=== PATIENT | male | born 1945 | race Two or more races ===

== ENCOUNTER 2019-07-29 18:18 | Inpatient (IN) | payer MEDICARE, SELFPAY ==
[~2019-07-29] VITALS: Ht 177.8 cm; Wt 84.4 kg
[2019-07-29] MEDS ORDERED: ETOMIDATE 2 MG/ML VIAL IV ONE ×2 (18:23→20:00)
[2019-07-29] MEDS ORDERED: IV NS 0.9% 1,000 ML IV ONE (18:23)
[2019-07-29] MEDS ORDERED: ROCURONIUM BROMIDE 50 MG/5 ML IV ONE ×2 (18:23→20:00)
[2019-07-29] MEDS ORDERED: ONDANSETRON HCL/PF 4 MG/2 ML VIAL IVP ONE (18:30)
[2019-07-29] MEDS ORDERED: KETOROLAC TROMETHAMINE INJ 30 MG/ML VIAL IV ONE (18:30)
[2019-07-29] MEDS ORDERED: KETOROLAC TROMETHAMINE 15 MG/ML VIAL ONE (18:46)
[2019-07-29] MEDS ORDERED: ONDANSETRON HCL/PF 4 MG/2 ML VIAL ONE (18:46)
[2019-07-29 18:48] LABS: BASOPHILS % (AUTO) 0.2 % (0.0-2.0); HEMATOCRIT 25 % (39-51); LYMPHOCYTES # (AUTO) 0.4 /CMM (0.8-4.8); LYMPHOCYTES % (AUTO) 3.3 % (20.0-44.0); MEAN CORPUSCULAR HGB CONC 31 g/dl (31.0-36.0); MEAN CORPUSCULAR VOLUME 70 fL (80-96); MONOCYTES # (AUTO) 1.1 /CMM (0.1-1.30); MONOCYTES % (AUTO) 9.7 % (2.0-12.0); NEUTROPHILS # (AUTO) 10.1 /CMM (1.8-8.9); NEUTROPHILS % (AUTO) 86.8 % (43.0-81.0); PLATELET COUNT (AUTO) 414 /CMM (150-450); RED BLOOD CELL COUNT(AUTO) 3.64 MIL/uL (4.5-6.0); WHITE BLOOD COUNT (AUTO) 11.6 K/uL (4.3-11.0)
[2019-07-29 18:59] LABS: CALCIUM, SERUM 8.5 mg/dL (8.5-10.1); CARBON DIOXIDE 20 mmol/L (21-32); CHLORIDE 108 mmol/L (98-107); CREATININE 1.6 mg/dL (0.6-1.3); GLUCOSE 169 mg/dL (74-106); POTASSIUM 4.1 mmol/L (3.5-5.1); SODIUM SERUM 140 mmol/L (136-145); UREA NITROGEN, BLOOD 43 mg/dL (7-18)
--- NOTE | 2019-07-29 19:02 | NUR ---
PATIENT INTUBATED BY DR. PENG. SIZE 7.5, 22CM ON THE LIP.
[2019-07-29 19:04] LABS: APPEARANCE,URINE Slightly Cloudy (CLEAR); BILIRUBIN,URINE MODERATE (NEGATIVE); BLOOD, URINE Moderate Ery/uL (NEGATIVE); KETONES,URINE 15 (NEGATIVE); LEUKOCYTE ESTERASE ,URINE Negative (NEGATIVE); NITRITE, URINE Negative (NEGATIVE); PH,URINE 5.5 (5.0-8.0); PROTEIN,URINE 100 mg/dl (NEGATIVE); UGLUCOSE Negative (NEGATIVE)
--- NOTE | 2019-07-29 19:10 | NUR ---
BIB [facility] 86 FROM AN ALLEY, DECREASED LOC, HOT TO TOUCH, TACHYPNEIC. PT NON VERBAL. WOUND ON DEJAH LEG LOWER LEG INFECTED & MAGGOTS CRAWLING. PT SEEN & EVAL'D BY DR. PENG. PLACED ON DATA CONTROL ASSISTANT. ST. PT INTUBATED & PLACED ON VENT. MEDICATED ORDERED PER ERMD. WILL CONT TO MONITOR.
--- NOTE | 2019-07-29 19:12 | NUR ---
RT rt called to er bed 5 for intubation. pt intubated with size 7.5 ett at 22cm at lip. vent settings are: AC 16 500 100% +5. no secretions were suctioned via ett. pt has diminished lung sounds. no complications during intubation procedure. abg in 1 hr. will continue to monitor
[2019-07-29] MEDS ORDERED: VANCOMYCIN 1 GM VIAL ONE (19:14)
[2019-07-29] MEDS ORDERED: CEFEPIME 1 GM VIAL ONE (19:14)
[2019-07-29 19:15] LABS: RBC,URINE 51-80 /HPF (0-2); WBC,URINE 0-2 /HPF (0-3)
[2019-07-29 19:16] LABS: BACTERIA,URINE Few /HPF (None Seen); MUCUS,URINE Few /LPF (None Seen); SQUAMOUS EPITHELIAL CELL,UR Rare /HPF (None Seen); URINE AMORPHOUS URATE Few /HPF (None Seen)
[2019-07-29 19:19] LABS: ALANINE AMINOTRANSFERASE 19 U/L (12-78); ALKALINE PHOSPHATASE 76 U/L (46-116); ASPARTATE AMINOTRANSFERASE 28 U/L (15-37); B-TYPE NATRIURETIC PEPTIDE 1833 PG/ML (0-125); BILIRUBIN,TOTAL 0.9 mg/dL (0.2-1.0); TOTAL PROTEIN, SERUM 7.1 g/dL (6.4-8.2)
[2019-07-29] MEDS ORDERED: MIDAZOLAM HCL 100 MG in IV NS 0.9% 80 ML IV PRN (19:30)
[2019-07-29] MEDS ORDERED: VANCOMYCIN 1 GM in IV D5W 250 ML IV ONE (19:30)
[2019-07-29] MEDS ORDERED: FENTANYL CITRATE IV 1,250 MCG in IV NS 0.9% 225 ML IV PRN (19:30)
[2019-07-29] MEDS ORDERED: CEFEPIME 1 GM in IV D5W 50 ML IV ONE (19:30)
--- NOTE | 2019-07-29 19:41 | NUR ---
BED ASSIGNMENT 263
[2019-07-29 20:00] LABS: BAND % (MANUAL) 8 % (0.0-5.0); LYMPHOCYTES % (MANUAL) 2 % (16-48); MONOCYTES % (MANUAL) 10 % (0-11.0); NEUTROPHILS % (MANUAL) 80 (42-76)
[2019-07-29] MEDS ORDERED: PROPOFOL 10MG/ML 50ML 50 ML IV PRN (20:00)
[2019-07-29] MEDS ORDERED: PROPOFOL 100 ML IV PRN (20:00)
[2019-07-29 20:02] LABS: CREATINE KINASE, TOTAL 369 U/L (39-308); FERRITIN 137 ng/mL (8-388)
[2019-07-29 20:11] LABS: C-REACTIVE PROTEIN 21.9 mg/dL (0.0-0.9)
--- NOTE | 2019-07-29 20:37 | NUR ---
RT pt transported to ct and back. no complications. pt placed back on vent with current settings upon return
[2019-07-29 20:39] LABS: D-DIMER 3.2 mg/L(FEU (0.17-0.50)
--- NOTE | 2019-07-29 20:48 | NUR ---
PT TO CT VIA JUNI
--- NOTE | 2019-07-29 20:53 | NUR ---
PT BACK FROM CT
[2019-07-29 20:54] LABS: BILIRUBIN,DIRECT 0.4 mg/dL (0.0-0.2)
[2019-07-29] MEDS ORDERED: PROPOFOL 0 ML ONE (20:59)
[2019-07-29] MEDS ORDERED: PROPOFOL 100 ML ONE (21:03)
[2019-07-29 21:16] LABS: ABG BASE EXCESS -7.3 mmol/L; ABG OXYGEN SATURATION 99.6 % (92.0-98.5); ABG PCO2 50.1 mmHg (35.0-45.0); ABG PO2 477.7 mmHg (75.0-100.0); AaDO2 185.2 mmHg; COHb 1.6 % (0.5-1.5); MetHb 0.4 % (0.0-1.5); O2Hb 97.6 % (94.0-97.0); SITE, ABG Left Radial; VENT MODE, BG AC 16 500 100% +5
--- NOTE | 2019-07-29 21:16 | NUR ---
PROPOFOL DRIP INITIATED, PT KEEGAN WELL. PT STABLE, RR EVEN & UNLABORED. NAD NOTED AT THIS TIME. WILL CONT TO MONITOR.
--- NOTE | 2019-07-29 21:38 | NUR ---
REPORT GIVEN TO MIRIAM DEL ROSARIO FOR ARIA.
[2019-07-29] MEDS ORDERED: IV NS 0.9% 1,000 ML IV PRN (21:43)
[2019-07-29] MEDS ORDERED: ACETAMINOPHEN 325 MG TABLET PO PRN (22:00)
[2019-07-29] MEDS ORDERED: MAGNESIUM HYDROXIDE 30 ML UDC PO PRN (22:00)
[2019-07-29] MEDS ORDERED: ACETAMINOPHEN 650 MG/SUPP.RECT RC PRN (22:00)
[2019-07-29] MEDS ORDERED: Z GUARD REMEDY 2 OZ OINT TP PRN (22:00)
[2019-07-29] MEDS ORDERED: MAG HYDROX/AL HYDROX/SIMETH 30 ML UDC PO PRN (22:00)
[2019-07-29] MEDS ORDERED: ONDANSETRON HCL/PF 4 MG/2 ML VIAL IVP PRN (22:00)
--- NOTE | 2019-07-29 22:05 | NUR ---
RECEIVED PATIENT FROM ER< ORALLY INTUBATED ON AC MODE,sedated on Propofol drip (received from ER @ 5 mck/kg/min)responds to pain,slightly moves /wiggles both lower extremities,moves both upper extremities,maintain on bilateral soft wrist restraints. Both lower extremities with diffuse maggot infested wound,edematous with thickened skin(greater /more on the left leg leg).CLEANSE both legs with NSS. Noted a lot of blood underneath the patient when turned,(not sure where the bleeding is from,when checked no bleeding noted coming from the rectum,will observe the source of bleeding next time it happens.
[2019-07-29 22:13] VITALS: BP 112/50
[2019-07-29 22:43] VITALS: BP 80/33
[2019-07-29 23:00] VITALS: BP 95/64
[2019-07-29 23:15] VITALS: BP 88/48
[2019-07-29] MEDS ORDERED: PIPERACILLIN /TAZOBACTAM 3.375 G VIAL IV ONE (23:22)
[2019-07-29] MEDS: ZOSYN IVPB 3.375 G in IV D5W 50ml IV SCH (23:23)
[2019-07-29 23:30] VITALS: BP 86/51
[2019-07-29 23:45] VITALS: BP 86/38
[2019-07-30] VITALS (88 sets, daily range): BP systolic 81–121; BP diastolic 41–72
--- NOTE | 2019-07-30 | NUR ---
Awakens on and off getting agitated,kicking legs,trying to get off restraints.Will titrate Propofol up as needed.Levophed order obtained from Dr. Dooley for BP support.
[2019-07-30] MEDS: PROPOFOL 100 ML IV PRN ×5 (00:22→19:59)
[2019-07-30] MEDS ORDERED: NOREPINEPHRINE 4 MG/4 ML AMPUL IV ONE (00:44)
[2019-07-30] MEDS ORDERED: NOREPINEPHRINE 8 MG in IV NS 0.9% 242 ML IV PRN ×3 (02:00)
--- NOTE | 2019-07-30 02:00 | NUR ---
Still occasionally coughs and gags, Propofol maintained @ 40 mcg/kg/min.
--- NOTE | 2019-07-30 04:00 | NUR ---
No change ,stable, On Levophed @ 0.1 mcg/kg/min for BP support.Still on Propopfol drip.No further bleeding noted all night.
[2019-07-30 04:11] LABS: BASOPHILS % (AUTO) 0.1 % (0.0-2.0); HEMATOCRIT 22 % (39-51); LYMPHOCYTES % (AUTO) 6.4 % (20.0-44.0); MEAN CORPUSCULAR HGB CONC 31 g/dl (31.0-36.0); MEAN CORPUSCULAR VOLUME 71 fL (80-96); MONOCYTES # (AUTO) 2.4 /CMM (0.1-1.30); MONOCYTES % (AUTO) 15.5 % (2.0-12.0); NEUTROPHILS # (AUTO) 11.8 /CMM (1.8-8.9); PLATELET COUNT (AUTO) 344 /CMM (150-450); RED BLOOD CELL COUNT(AUTO) 3.07 MIL/uL (4.5-6.0); WHITE BLOOD COUNT (AUTO) 15.2 K/uL (4.3-11.0)
[2019-07-30 04:35] LABS: ALBUMIN 1.6 g/dL (3.4-5.0); BILIRUBIN,TOTAL 0.5 mg/dL (0.2-1.0); CALCIUM, SERUM 7.4 mg/dL (8.5-10.1); CREATININE 1.7 mg/dL (0.6-1.3); MAGNESIUM 2.5 mg/dL (1.8-2.4); POTASSIUM 3.9 mmol/L (3.5-5.1)
[2019-07-30 04:40] LABS: C-REACTIVE PROTEIN 30.7 mg/dL (0.0-0.9)
[2019-07-30] MEDS ORDERED: PIPERACILLIN /TAZOBACTAM 3.375 G VIAL IV ONE (05:24)
[2019-07-30 05:29] LABS: HEMOGLOBIN 6.8 g/dL (13.5-17.5)
[2019-07-30] MEDS: ZOSYN IVPB 3.375 G in IV D5W 50ml IV SCH (05:38)
[2019-07-30 05:44] LABS: LYMPHOCYTES % (MANUAL) 10 % (16-48); NEUTROPHILS % (MANUAL) 83 (42-76)
[2019-07-30 05:45] LABS: MONOCYTES % (MANUAL) 7 % (0-11.0)
[2019-07-30] MEDS ORDERED: FEE PK DOSING 1 MIN EA MC ONE (07:41)
[2019-07-30] MEDS ORDERED: IV NS 0.9% 1,000 ML IV PRN (08:56)
[2019-07-30 08:58] LABS: ABG BASE EXCESS -5.1 mmol/L; ABG PCO2 28.3 mmHg (35.0-45.0); ABG PH 7.434 (7.350-7.450); ABG PO2 319.6 mmHg (75.0-100.0); AaDO2 77.1 mmHg; COHb 1.1 % (0.5-1.5); MetHb 0.3 % (0.0-1.5); O2Hb 98.6 % (94.0-97.0); PEEP,BG 5 cm H2O; SITE, ABG Right Radial; VENT MODE, BG AC 60%; VT, ABG 500 mL
[2019-07-30] MEDS: VANCOMYCIN 0.75 GM in IV D5W 250 ML IV SCH ×2 (09:19→20:18)
[2019-07-30] MEDS: HYDROCORTISONE SOD SUCCINATE 100 MG/2 ML VIAL IV SCH ×3 (09:19→18:47)
[2019-07-30 09:35] LABS: TOTAL IRON BINDING CAPACITY 158 ug/dl (250-450)
[2019-07-30 10:16] LABS: IRON, SERUM 3 ug/dl (50-175)
[2019-07-30] MEDS: PIPERACILLIN /TAZOBACTAM 3.375 G in IV D5W 100 ML IV SCH ×2 (10:56→18:47)
[2019-07-30 11:32] LABS: APPEARANCE,URINE CLOUDY (CLEAR); BILIRUBIN,URINE NEGATIVE (NEGATIVE); BLOOD, URINE LARGE Ery/uL (NEGATIVE); COLOR,URINE YELLOW (YELLOW); KETONES,URINE NEGATIVE (NEGATIVE); LEUKOCYTE ESTERASE ,URINE NEGATIVE (NEGATIVE); NITRITE, URINE NEGATIVE (NEGATIVE); PH,URINE 5.5 (5.0-8.0); PROTEIN,URINE TRACE mg/dl (NEGATIVE); UGLUCOSE NEGATIVE (NEGATIVE); UROBILINOGEN,URINE 0.2 EU/dL (0.2)
[2019-07-30 11:53] LABS: CREATININE, URINE 105.4 MG/DL (30.0-125.0); URINE TOTAL PROTEIN 108.4 mg/dL (0-11.9)
--- NOTE | 2019-07-30 12:16 | NUR ---
Early Childhood Services Coordinator consult was requested during the case management meeting due to the pts homelessness and lack of identification. Pt is a 71 year old male who was admitted when he collapsed on the street. Per pts nurse, Piedad, PRANEETH cannot communicate with the pt at this time due to the pt being intubated and sedated. PRANEETH was unable to receive any information for this pt at this time. PRANEETH will follow up.
[2019-07-30] MEDS ORDERED: IV D5/ 0.9% NACL 1,000 ML IV ONE (13:00)
[2019-07-30] MEDS: PANTOPRAZOLE 40 MG VIAL IV SCH ×2 (13:05→20:25)
[2019-07-30 14:19] LABS: RBC,URINE 51-80 /HPF (0-2); WBC,URINE 0-2 /HPF (0-3)
[2019-07-30 14:20] LABS: BACTERIA,URINE 1+ /HPF (None Seen); SQUAMOUS EPITHELIAL CELL,UR 0-2 /HPF (None Seen); URIC ACID CRYSTALS,URINE Moderate /HPF (None Seen)
[2019-07-30 14:22] LABS: EOSINOPHIL,URINE None Seen
[2019-07-30] MEDS: SOD FERRIC GLUC 125 MG in IV NS 0.9% 100 ML IV SCH (14:55)
[2019-07-30] MEDS ORDERED: ACETAMINOPHEN 650 MG/20.3 ML UDC NG PRN (16:30)
--- NOTE | 2019-07-30 19:15 | NUR ---
SAFETY COUNCIL DIRECTOR NOTE RECEIVED PATIENT IN BED RESTING WITH HOB ELEVATED. BREATHING EVEN AND NON LABORED. VENT DEPENDANT. SEDATED, ON DIPRIVAN RUNNING AT 40 MCG/KG/MIN. RESPONSIVE TO LOCALIZED PAIN. IV SITES ON RFA GAUGE 18 AND LAC GAUGE 18, BOTH PATENT. ON DIEHL CATH, URINE IS CLEAR AND YELLOW IN COLOR. PATIENT IS ON BILATERAL SOFT WRIST RESTRAINS. WOUND DRESSINGS ON BILATERAL LOWER EXTREMITIES CLEAN AND DRY. IN NO APPARENT DISTRESS NOTED AT THIS TIME. WILL CONTINUE TO MONITOR.
--- NOTE | 2019-07-30 19:30 | NUR ---
END OF SHIFT NOTE: PT HAD A FAIRLY UNEVENTFUL SHIFT. LEVOPHED DRIP TITRATED OFF AT 1100 PER TITRATION ORDERS. PT RECEIVED 1 UNIT PRBCS PER MD ORDERS. WOUND CARE NURSE WAS NOT HERE TODAY TO ASSESS PT'S WOUNDS AND HOW TO GET RID OF MAGGOTS IN PATIENT LEG WOUNDS. TRISH RUIZ FROM WOUND CARE CLINIC WAS HERE TODAY AND STATED THAT THE PARI MUTUEL TICKET SELLER HAS BEEN CONSULTED AND WILL ASSESS PATIENT TO HOW TO GET RID OF THE MAGGOTS AND TREAT WOUNDS. DR. MAGY METZ NOTIFED AFTER RN REMOVED DRESSING ON LEFT LEG THAT THERE ARE HUNDREDS IF NOT THOUSANDS OF MAGGOTS IN AND OUT OF THE WOUND ON LEFT LET AND FOOT. DRESSING REMOVED, LEG WRAPPED IN CHUCKS PADS TO HELP WICK AWAY MOISTURE. SEE WOUND PICTURES. PT CHECKED ON HOURLY AND PRN BY NURSING STAFF.
[2019-07-30] MEDS: IV D5/ 0.9% NACL 1,000 ML IV PRN (21:30)
[2019-07-31] VITALS (45 sets, daily range): BP systolic 91–133; BP diastolic 51–84
[2019-07-31] MEDS: PROPOFOL 100 ML IV PRN ×6 (01:00→22:49)
[2019-07-31] MEDS: PIPERACILLIN /TAZOBACTAM 3.375 G in IV D5W 100 ML IV SCH ×3 (02:23→18:28)
--- NOTE | 2019-07-31 04:00 | NUR ---
FIBER HEEL PIECE SHAPER NOTE PATIENT TOLERATED BED BATH WELL AT THIS TIME. NO BM NOTED. NOTED LARGE AMOUNT OF MAGGOTS IN BILATERAL LOWER EXTREMITIES, UNABLE TO ELIMINATE ALL MAGGOTS. WILL CONTINUE TO MONITOR.
[2019-07-31 04:19] LABS: BASOPHILS % (AUTO) 0.1 % (0.0-2.0); HEMATOCRIT 21 % (39-51); LYMPHOCYTES # (AUTO) 0.6 /CMM (0.8-4.8); LYMPHOCYTES % (AUTO) 5.8 % (20.0-44.0); MEAN CORPUSCULAR HGB CONC 32 g/dl (31.0-36.0); MEAN CORPUSCULAR VOLUME 72 fL (80-96); MONOCYTES # (AUTO) 0.8 /CMM (0.1-1.30); MONOCYTES % (AUTO) 7.6 % (2.0-12.0); NEUTROPHILS # (AUTO) 8.9 /CMM (1.8-8.9); NEUTROPHILS % (AUTO) 86.5 % (43.0-81.0); PLATELET COUNT (AUTO) 268 /CMM (150-450); RED BLOOD CELL COUNT(AUTO) 2.92 MIL/uL (4.5-6.0); WHITE BLOOD COUNT (AUTO) 10.3 K/uL (4.3-11.0)
[2019-07-31 04:35] LABS: CREATINE KINASE, TOTAL 629 U/L (39-308)
[2019-07-31 04:38] LABS: ALANINE AMINOTRANSFERASE 17 U/L (12-78); ALKALINE PHOSPHATASE 62 U/L (46-116); ASPARTATE AMINOTRANSFERASE 30 U/L (15-37); BILIRUBIN,TOTAL 0.3 mg/dL (0.2-1.0); CALCIUM, SERUM 7.1 mg/dL (8.5-10.1); CARBON DIOXIDE 19 mmol/L (21-32); CHLORIDE 113 mmol/L (98-107); CREATININE 1.4 mg/dL (0.6-1.3); GLUCOSE 216 mg/dL (74-106); MAGNESIUM 2.6 mg/dL (1.8-2.4); PHOSPHORUS 3.2 mg/dL (2.5-4.9); SODIUM SERUM 142 mmol/L (136-145); TOTAL PROTEIN, SERUM 5.9 g/dL (6.4-8.2); UREA NITROGEN, BLOOD 31 mg/dL (7-18)
[2019-07-31 04:47] LABS: ALBUMIN 1.4 g/dL (3.4-5.0)
[2019-07-31 04:53] LABS: C-REACTIVE PROTEIN 16.3 mg/dL (0.0-0.9); HEMOGLOBIN 6.6 g/dL (13.5-17.5)
[2019-07-31 04:57] LABS: MONOCYTES % (MANUAL) 5 % (0-11.0); NEUTROPHILS % (MANUAL) 89 (42-76)
[2019-07-31 04:58] LABS: LYMPHOCYTES % (MANUAL) 6 % (16-48)
--- NOTE | 2019-07-31 05:15 | NUR ---
RT NOTES PT RECEIVED ORALLY INTUBATED ON [facility] VENT ON CHARTED AC MODE SETTINGS. NO SIGNS OF RESP DISTRESS/SOB NOTED THROUGHOUT SHIFT. AIRWAY PATENT AND SECURED. PLASTIC SURGERY MANAGER DONE. PT SUCTIONED. ALARMS SET AND AUDIBLE. AMBUBAG AT [facility]. VENT CONNECTED TO RED OUTLET. WILL CONT TO MONITOR. Addendum: 07/31/19 at 0531 by EBER RIBERA RT Amended: Links added.
[2019-07-31] MEDS: IV D5/ 0.9% NACL 1,000 ML IV PRN (05:40)
--- NOTE | 2019-07-31 06:00 | NUR ---
BILINGUAL SOCIAL WORKER NOTE RECEIVED CRITICAL LAB VALUE: ALBUMIN 1.[address] VASQUEZ MADE AWARE OF CRITICAL LAB VALUES. RECEIVED ORDER FOR 1 UNIT PRBC. ORDER NOTED AND CARRIED OUT. WILL CONTINUE TO MONITOR.
--- NOTE | 2019-07-31 06:36 | NUR ---
CAN STACKER NOTE PATIENT REMAINED STABLE THROUGHOUT THE NIGHT. NO SIGNIFICANT CHANGES NOTED. ALL DUE MEDS GIVEN ORDERED AND TOLERATED WELL. REPOSITIONED Q2H. IN NO APPARENT DISTRESS NOTED AT THIS TIME. WILL ENDORSE TO AM SHIFT RN FOR CONTINUATION OF CARE.
--- NOTE | 2019-07-31 08:48 | NUR ---
WOUND CARE CONSULT: PT PRESENTS WITH MULTIPLE INTACT DEEP TISSUE INJURIES WITH GENERALIZED EDEMA, ESPECIALLY TO RT HIP AREA, RASH TO SCROTAL AREA WELL MAGGOT- INFESTED LOWER LEGS WITH OPEN SKIN AND EDEMA/REDNESS, ALL PRESENT ON ADMISSION. RECOMMEND DPM CONSULT AND SURGICAL CONSULT. DR CHRISTIANSON AND DR HATCH NOTIFIED OF CONSULT REQUEST. HALF STRENGTH DAKINS SOLUTION WAS USED TO REMOVE MANY MAGGOTS POSSIBLE FROM LOWER EXTREMITIES. LOWER LEGS WERE WRAPPED WITH DAKINS MOISTENED EXTRASORB PADS TIL SEEN BY DPM. PT TOLERATED WELL. RECOMMENDATIONS MADE FOR SKIN PROTECTION. DISCUSSED WITH NURSING STAFF. WILL SEE PRN. RICKS IN AGREEMENT WITH PLAN OF CARE. Addendum: 07/31/19 at 0852 by JOSI KIRK WNDNU Amended: Links added.
[2019-07-31 09:16] LABS: ABG OXYGEN SATURATION 99.7 % (92.0-98.5); ABG PCO2 29.4 mmHg (35.0-45.0); ABG PH 7.423 (7.350-7.450); ABG PO2 197.4 mmHg (75.0-100.0); COHb 1.7 % (0.5-1.5); MetHb 0.3 % (0.0-1.5); O2Hb 97.7 % (94.0-97.0); SITE, ABG Right Radial; VENT MODE, BG AC 14 500 40% +5
[2019-07-31] MEDS: PANTOPRAZOLE 40 MG VIAL IV SCH ×2 (09:38→20:03)
[2019-07-31] MEDS: HYDROCORTISONE SOD SUCCINATE 100 MG/2 ML VIAL IV SCH ×2 (09:38→20:04)
[2019-07-31] MEDS: VANCOMYCIN 0.75 GM in IV D5W 250 ML IV SCH (09:38)
[2019-07-31] MEDS: DAKINS HALF STRENGTH (0.25%) 480 ML BOTTLE TOP SCH (09:39)
[2019-07-31] MEDS ORDERED: IVERMECTIN 3 MG TABLET NG ONE (10:30)
--- NOTE | 2019-07-31 11:41 | NUR ---
Warm handoff by PRANEETH Hayden. Per MD notes, pt is a 71-year-old male brought in by EMS with altered mental status. Patient was found down in an alley unresponsive, tachypneic, minute and hot to touch. Patient making incomprehensible noises here in the emergency department and not following any commands. Patient tachypneic, tachycardic and altered, ABG consistent with hypercapnic respiratory failure patient was intubated for to protect airway in ED. Pt is currently intubated and unable to provide any information. Per ICU CRN, pt appears to be homeless and had maggots in his wounds. Clipper Counters to f/u when pt is able to participate in an assessment.
[2019-07-31] MEDS ORDERED: HYDROCORTISONE SOD SUCCINATE 100 MG/2 ML VIAL IV SCH (12:30)
[2019-07-31 13:07] LABS: *SPE A/G RATIO 0.5 (0.7-1.7); *SPE ALBUMIN 1.8 g/dL (2.9-4.4); *SPE ALPHA-1-GLOBULIN 0.4 g/dL (0.0-0.4); *SPE BETA GLOBULIN 0.7 g/dL (0.7-1.3); *SPE GLOBULIN, TOTAL 3.7 g/dL (2.2-3.9); *SPE M-SPIKE Not Observed g/dL (Not Observed); *SPEGAMMA GLOBULIN 1.6 g/dL (0.4-1.8)
--- NOTE | 2019-07-31 13:17 | NUR ---
NO SEDATION VACATION TODAY PER ORDER FROM DR. KUMAR. BILAT LOWER EXTREMITY DOPPLERS DEFFERED TILL TOMORROW, PT HAS DAKINS SOLUTION POOLED ON BILAT LOWER EXTREMITIES TO HELP KILL MAGGOTS.
--- NOTE | 2019-07-31 15:53 | NUR ---
RT NOTE RECEIVED PT MECHANICALLY VENTILATED VIA 7.5 ETT 22 CM AT LIP. CUFF INFLATED. ETT SECURE. ALARMS SET PER PROTOCOL AND AUDIBLE. VENTILATOR SETTINGS PRESCRIBED. VENT PLUGGED IN TO RED OUTLET. AMBU BAG AT BED SIDE. NO DISTRESS NOTED AT MOMENT. Addendum: 07/31/19 at 1555 by DEE LEMON RT Amended: Links added.
[2019-07-31] MEDS: SOD FERRIC GLUC 125 MG in IV NS 0.9% 100 ML IV SCH (16:27)
--- NOTE | 2019-07-31 19:00 | NUR ---
END OF SHIFT NOTE: PT HAD AN EVENTFUL SHIFT. THIS AM BEDSIDE RN AND MACHINE REPAIRER FLUSHED BILAT LEG WOUNDS WITH SALINE THEN SOAKED THEM IN DAKINS SOLUTION AND WRAPPED THEM IN CHUCKS TO HELP KILL MAGGOTS. STROMECTAL GIVEN PER OG TUBE PER MD ORDERS TO HELP KILL MAGGOTS. PT RECEIVED 1 UNIT PACKED RED BLOOD CELLS PER MD ORDERS. NO BM THIS SHIFT. PT CHECKED ON HOURLY AND PRN BY NURSING STAFF.
[2019-07-31] MEDS: VANCOMYCIN 1 GM in IV NS 0.9% 250 ML IV SCH (20:01)
[2019-08-01] VITALS (24 sets, daily range): BP systolic 82–104; BP diastolic 48–67
[2019-08-01] MEDS: PIPERACILLIN /TAZOBACTAM 3.375 G in IV D5W 100 ML IV SCH ×3 (01:10→17:54)
[2019-08-01] MEDS: PROPOFOL 100 ML IV PRN ×6 (02:42→23:05)
[2019-08-01 05:11] LABS: PTH, INTACT 61 pg/mL (15-65)
[2019-08-01 05:27] LABS: BASOPHILS # (AUTO) 0.1 /CMM (0.0-0.2); BASOPHILS % (AUTO) 1.2 % (0.0-2.0); HEMATOCRIT 22 % (39-51); HEMOGLOBIN 7.4 g/dL (13.5-17.5); LYMPHOCYTES # (AUTO) 0.9 /CMM (0.8-4.8); LYMPHOCYTES % (AUTO) 8.2 % (20.0-44.0); MEAN CORPUSCULAR HGB CONC 33 g/dl (31.0-36.0); MEAN CORPUSCULAR VOLUME 75 fL (80-96); MONOCYTES # (AUTO) 0.8 /CMM (0.1-1.30); MONOCYTES % (AUTO) 7.2 % (2.0-12.0); NEUTROPHILS # (AUTO) 9.2 /CMM (1.8-8.9); NEUTROPHILS % (AUTO) 83.4 % (43.0-81.0); PLATELET COUNT (AUTO) 217 /CMM (150-450); RED BLOOD CELL COUNT(AUTO) 2.99 MIL/uL (4.5-6.0)
[2019-08-01 05:50] LABS: C-REACTIVE PROTEIN 9.3 mg/dL (0.0-0.9)
[2019-08-01 06:01] LABS: CALCIUM, SERUM 7.2 mg/dL (8.5-10.1); CREATININE 0.9 mg/dL (0.6-1.3); MAGNESIUM 2.5 mg/dL (1.8-2.4); PHOSPHORUS 2.8 mg/dL (2.5-4.9); POTASSIUM 4.1 mmol/L (3.5-5.1)
--- NOTE | 2019-08-01 06:08 | NUR ---
RT PATIENT WAS RECEIVED ORALLY INTUBATED ON MECHANICAL VENT WITH CHARTED SETTINGS. PATIENT STABLE THROUGHOUT THE SHIFT , NO SOB NOTED.ALARMS ARE SET AND AUDIBLE, VENT PLUGGED INTO RED OUTLET.LIGIA AT [facility],WILL CONTINUE TO MONITOR. Addendum: 08/01/19 at 0613 by ADAMA LEMON RT Amended: Links added.
--- NOTE | 2019-08-01 07:01 | NUR ---
RN NOTE NO ACUTE CHANGES OBSERVED OVERNIGHT. PT WITH ET TUBE AND ON MECHANICAL VENTILATOR TOLERATING CURRENT SETTINGS WELL. CALL LIGHT WITHIN REACH, SAFETY MEASURES IN PLACE, WILL ENDORSE TO MORNING RN FOR CONTINUATION OF CARE.
[2019-08-01] MEDS: VANCOMYCIN 1 GM in IV NS 0.9% 250 ML IV SCH ×2 (08:18→20:04)
[2019-08-01] MEDS: DAKINS HALF STRENGTH (0.25%) 480 ML BOTTLE TOP SCH (08:18)
[2019-08-01] MEDS: HYDROCORTISONE SOD SUCCINATE 100 MG/2 ML VIAL IV SCH ×2 (09:18→20:10)
[2019-08-01] MEDS: PANTOPRAZOLE 40 MG VIAL IV SCH ×2 (09:18→20:10)
--- NOTE | 2019-08-01 10:45 | NUR ---
WOUND CARE DONE PER MD ORDERS. PRIOR TO REMOVING ABSORBANT PADS (CHUCKS) FROM AROUND PT'S LEGS RN PUT 4 CHUCKS PAD WITH A RED TRASH BAG IN BETWEEN THE 2ND AND 3RD LAYER. AFTER OPENING THE CHUCKS PADS WRAPPED AROUND EACH LEG, LEGS WERE RINSE WITH SALINE TO REMOVE ANY MAGGOTS. THE LEFT LEG WOUND HAD FAR LESS MAGGOTS THAN YESTERDAY BUT STILL SEVERAL LIVE MAGGOTS. PER MD ORDERS LEGS WERE RINSE THOROUGHLY WITH BETADINE TO HELP BRING OUT ANY HIDDEN MAGGOTS. SOILED CHUCKS PADS THEN REMOVED AND PUT IN RED TRASH BAG AND PUT IN RED TRASH BIN. WITH LEGS ON CLEAN CHUCKS PADS LEGS WERE WERE RINSED THOROUGHLY WITH DAKINS SOLUTION THEN WRAPPED IN CHUCKS PADS AND TAPED CLOSED TO KEEP THE DAKINS SOLUTION ON LEG TO HELP KILL THE REMAINING MAGGOTS. PT'S RIGHT LEG THERE WERE NO VISIBLE MAGGOTS NOTED. NO MAGGOTS SEEN ON BEDDING OUTSIDE THE DRESSING. CHUCKS PADS TO REMAIN CLOSED AROUND LEGS TILL TOMORROW MORNING WOUND CARE TIME PER MD ORDERS. DURING WOUND CARE PATIENTS PROPOFOL NEEDED TO BE TURNED UP PATIENT APPEARED TO BE IN VISIBLE PAIN. NO SEDATION VACATION TODAY D/T INCREASED PAIN FROM DRESSING CHANGE AND NO WEANING TODAY D/T CONTINUED LIVE MAGGOTS ON LEFT LEG WOUND. MD'S NOTIFIED. LOWER EXTREMITY DOPPLERS DEFERRED AGAIN TODAY D/T LIVE MAGGOTS. RADIOLOGY NOTIFIED.
[2019-08-01] MEDS: SOD FERRIC GLUC 125 MG in IV NS 0.9% 100 ML IV SCH (14:16)
--- NOTE | 2019-08-01 18:49 | NUR ---
END OF SHIFT NOTE: PT HAD A FAIRLY UNEVENTFUL SHIFT. PER PREVIOUS NOTE WOUND CARE DONE, NO SEDATION VACATION THIS SHIFT, NO WEANING TRIAL PER DR. DIANA, NO BILAT LOWER EXT DOPPLERS UNTIL MAGGOTS ARE GONE. NEXT DRESSING CHANGE AND ASSESSMENT OF MAGGOTS IS TOMORROW MORNING. PT CHECKED ON HOURLY AND PRN BY NURSING STAFF.
--- NOTE | 2019-08-01 19:10 | NUR ---
EARLY CHILDHOOD SERVICES COORDINATOR OPENING NOTE RECEIVED PATIENT IN BED RESTING WITH HOB ELEVATED. BREATHING EVEN AND NON LABORED. ON ETT/VENT SETTING ORDERED SPO2 100% NO SIGN AND SYMPTOMS OF RESPIRATORY DISTRESS. SEDATED, ON DIPRIVAN RUNNING AT 40 MCG/KG/MIN.VIA GRACE PICC LINE. TELE MONITOR READING OF SINUS RHYTHM 60'S RESPONSIVE TO LOCALIZED PAIN.OGT CLAMPED AND ON PLACED IV SITES ON RFA GAUGE 18 AND LAC GAUGE 18, BOTH PATENT. ON DIEHL CATH, URINE IS CLEAR AND YELLOW IN COLOR. PATIENT IS ON BILATERAL SOFT WRIST RESTRAINS. WOUND DRESSINGS ON BILATERAL LOWER EXTREMITIES CLEAN AND DRY. IN NO APPARENT DISTRESS NOTED AT THIS TIME. WILL CONTINUE TO MONITOR.
[2019-08-02] VITALS (25 sets, daily range): BP systolic 86–119; BP diastolic 50–70
[2019-08-02] MEDS: PIPERACILLIN /TAZOBACTAM 3.375 G in IV D5W 100 ML IV SCH ×3 (02:00→17:19)
[2019-08-02] MEDS: PROPOFOL 100 ML IV PRN ×2 (04:37→08:30)
[2019-08-02 04:53] LABS: BASOPHILS % (AUTO) 0.3 % (0.0-2.0); EOSINOPHILS % (AUTO) 0.1 % (0.0-6.0); HEMATOCRIT 29 % (39-51); HEMOGLOBIN 8.7 g/dL (13.5-17.5); LYMPHOCYTES # (AUTO) 1.2 /CMM (0.8-4.8); LYMPHOCYTES % (AUTO) 6.7 % (20.0-44.0); MEAN CORPUSCULAR HGB CONC 30 g/dl (31.0-36.0); MEAN CORPUSCULAR VOLUME 76 fL (80-96); MONOCYTES % (AUTO) 5.9 % (2.0-12.0); NEUTROPHILS # (AUTO) 15.2 /CMM (1.8-8.9); PLATELET COUNT (AUTO) 213 /CMM (150-450); RED BLOOD CELL COUNT(AUTO) 3.78 MIL/uL (4.5-6.0); WHITE BLOOD COUNT (AUTO) 17.5 K/uL (4.3-11.0)
[2019-08-02 05:07] LABS: CALCIUM, SERUM 7.6 mg/dL (8.5-10.1); MAGNESIUM 2.4 mg/dL (1.8-2.4); PHOSPHORUS 3.1 mg/dL (2.5-4.9); POTASSIUM 4.5 mmol/L (3.5-5.1)
[2019-08-02 05:11] LABS: C-REACTIVE PROTEIN 5.7 mg/dL (0.0-0.9)
--- NOTE | 2019-08-02 06:48 | NUR ---
RN CLOSING NOTES PT ON BED SEDATED, ETT/VENT SETTING ORDERED TOLERATED WELL NO SIGN AND SYMPTOMS OF RESPIRATORY DISTRESS SPO2 100% TELE MONITOR READS SINUS RHYTHM 60'S NO SIGNIFICANT CHANGES ON CONDITION NOTED, ALL NEEDS ATTENDED SAFETY MEASURE MAINTAINED BED ON LOWEST POSITION AND LOCKED SIDE RAILS UPX4 SOFT BILATERAL WRIST RESTRAINTS RENEWED AND ON PLACED WILL ENDORSED TO AM SHIFT NURSE
--- NOTE | 2019-08-02 07:40 | NUR ---
rn opening note: Received patient in bed and sedated. With mechanical ventilation at current settings being tolerated well. No SOB and not in respiratory distress. OGT present, patent and intact. Tele monitoring showing sinus rhythm in the 70s. Villafuerte catheter draining greenish urine. IV site clean, dry, patent and intact. With Propofol infusing @ 40mcg/kg/min and CVP measured between 6-[address] Faulkner informed. Call light in reach. Bed locked, low and at semi-redman's position. Side rails up x3. Safety ensured and observed. Will continue to monitor.
[2019-08-02] MEDS: VANCOMYCIN 1 GM in IV NS 0.9% 250 ML IV SCH ×2 (08:03→19:43)
[2019-08-02 08:20] LABS: ABG BASE EXCESS -0.9 mmol/L; ABG OXYGEN SATURATION 97.9 % (92.0-98.5); ABG PCO2 36.7 mmHg (35.0-45.0); ABG PH 7.421 (7.350-7.450); ABG PO2 108.5 mmHg (75.0-100.0); AaDO2 134.5 mmHg; COHb 0.8 % (0.5-1.5); MetHb 0.3 % (0.0-1.5); O2Hb 96.8 % (94.0-97.0); SITE, ABG Right Radial; VENT MODE, BG AC 14 500 40%+5
[2019-08-02] MEDS: HYDROCORTISONE SOD SUCCINATE 100 MG/2 ML VIAL IV SCH ×2 (08:56→20:26)
[2019-08-02] MEDS: PANTOPRAZOLE 40 MG VIAL IV SCH ×2 (08:56→20:26)
[2019-08-02] MEDS: DAKINS HALF STRENGTH (0.25%) 480 ML BOTTLE TOP SCH (09:00)
--- NOTE | 2019-08-02 11:38 | NUR ---
PER RN PATIENT STILL HAVE LIVE MAGGOTS, DUPLEX VENOUS LOWER EXTREMITIES BILATERAL WILL POSTPONE TOMORROW.
[2019-08-02 14:57] LABS: ABG BASE EXCESS -1.4 mmol/L; ABG OXYGEN SATURATION 96.8 % (92.0-98.5); ABG PCO2 33.6 mmHg (35.0-45.0); ABG PH 7.441 (7.350-7.450); ABG PO2 90.5 mmHg (75.0-100.0); AaDO2 156.1 mmHg; COHb 0.6 % (0.5-1.5); MetHb 0.3 % (0.0-1.5); O2Hb 95.9 % (94.0-97.0); SITE, ABG Right Radial
[2019-08-02] MEDS ORDERED: GLUCERNA 1.2 1,000 ML BOTTLE NG PRN (15:00)
--- NOTE | 2019-08-02 15:00 | NUR ---
rn note: Glucerna 1.2 @ 25mls/hr to advance to 60mls/hr x 24hrs while on Diprivan ordered for tube feeding. Noted and carried out.
[2019-08-02] MEDS: SOD FERRIC GLUC 125 MG in IV NS 0.9% 100 ML IV SCH (15:19)
--- NOTE | 2019-08-02 15:30 | NUR ---
rn note: No acute changes noted on shift. Patient was seen earlier by Dr. Ean wilder, Dr. Healy and Dr. Faulkner. Currently on weaning trial with Diprivan off. Aware of venous Doppler study postponed today. Due medications given. Safety ensured and observed. Treatment given as ordered. Endorsed to MIRIAM Wilhelm for continuity of care.
--- NOTE | 2019-08-02 16:00 | NUR ---
LATRINE CLEANER NOTES RECEIVED PATIENT RESPONSIVE TO VERBAL STIMULI , OFF SEDATION , DROWSY , LETHARGIC , ON SIMV MODE SETTINGS ORDERED WITH NO SIGNS OF DISTRESS , TOLERATING WELL , ETT 7.[address] , SR 75 ON BEDSIDE MONITOR , OGT CLAMPED IN PLACE , FC DRAINING VIA GRAVITY , BLE EXTREMITY WOUND DRESSING C/D/I OFFLOADED , GRACE PICC LINE WITH NS @ TKO , GT FEEDING ON HOLD NO FEEDING PUMP PER GERARDO FROM [facility] , WILL CONTINUE TO MONITOR
--- NOTE | 2019-08-02 20:23 | NUR ---
RN NOTE VERIFIED OGT PLACEMENT VIA ASPIRATION AND AUSCULTATION. STARTED GLUCERNA 1.2 TF ORDERED. STARTED WITH RATE OF 20ML/HOUR. WILL MONITOR TOLERANCE.
--- NOTE | 2019-08-02 21:00 | NUR ---
RN NOTE PT TOLERATING TUBE FEEDING WELL WITH MINIMAL GASTRIC RESIDUAL (<5ML). INCREASED TUBE FEEDING RATE TO 35ML/HOUR ORDERED. WILL CONTINUE TO MONITOR. Addendum: 08/03/19 at 0634 by RAY HOPE RN ERROR: FEEDING RATE 25ML/HOUR.
[2019-08-03] VITALS (41 sets, daily range): BP systolic 93–138; BP diastolic 43–76
[2019-08-03] MEDS: PIPERACILLIN /TAZOBACTAM 3.375 G in IV D5W 100 ML IV SCH ×3 (01:37→17:57)
[2019-08-03 04:20] LABS: BASOPHILS % (AUTO) 0.1 % (0.0-2.0); EOSINOPHILS % (AUTO) 0.1 % (0.0-6.0); HEMATOCRIT 27 % (39-51); HEMOGLOBIN 8.4 g/dL (13.5-17.5); LYMPHOCYTES # (AUTO) 0.9 /CMM (0.8-4.8); LYMPHOCYTES % (AUTO) 4.5 % (20.0-44.0); MEAN CORPUSCULAR HGB CONC 31 g/dl (31.0-36.0); MEAN CORPUSCULAR VOLUME 76 fL (80-96); MONOCYTES # (AUTO) 1.2 /CMM (0.1-1.30); MONOCYTES % (AUTO) 5.7 % (2.0-12.0); NEUTROPHILS % (AUTO) 89.6 % (43.0-81.0); PLATELET COUNT (AUTO) 269 /CMM (150-450); RED BLOOD CELL COUNT(AUTO) 3.61 MIL/uL (4.5-6.0); WHITE BLOOD COUNT (AUTO) 20.1 K/uL (4.3-11.0)
[2019-08-03 04:39] LABS: ALBUMIN 1.5 g/dL (3.4-5.0); BILIRUBIN,TOTAL 0.5 mg/dL (0.2-1.0); CALCIUM, SERUM 7.5 mg/dL (8.5-10.1); CREATININE 0.9 mg/dL (0.6-1.3); MAGNESIUM 2.1 mg/dL (1.8-2.4); PHOSPHORUS 2.7 mg/dL (2.5-4.9); POTASSIUM 3.4 mmol/L (3.5-5.1)
[2019-08-03 05:32] LABS: C-REACTIVE PROTEIN 7.6 mg/dL (0.0-0.9)
--- NOTE | 2019-08-03 06:30 | NUR ---
RN NOTE PT NOTED TO HAVE BECOME TACHYPNEIC. RR 30-45. RT RETURNED PT TO AC MODE. AC 14, TIDAL VOLUME 500. FIO2 40% AND PEEP 5. DIPROVAN STARTED AT 5MCG. WILL MONITOR PT.
[2019-08-03] MEDS: PROPOFOL 100 ML IV PRN ×2 (06:36→18:00)
--- NOTE | 2019-08-03 06:36 | NUR ---
pt returned to ac mode on vent due to increased rr to [address] molina verbal order "return to ac if pt is not tolerating" Addendum: 08/03/19 at 0637 by RICHIE DUNCAN RT Amended: Links added.
--- NOTE | 2019-08-03 07:29 | NUR ---
RN NOTE PT SEDATED IN BED IN SEMI LLANOS'S POSITION. ET TUBE IN PLACE. PT ON AC MODE AND CURRENTLY TOLERATING SETTINGS WELL. TUBE FEEDING RUNNING ORDERED AND TOLERATING WELL. CVP MONITORING READS 7-10. DIEHL CATHETER IN PLACE DRAINING TEA COLORED URINE. CALL LIGHT WITHIN REACH, SAFETY MEASURES IN PLACE, WILL ENDORSE TO MORNING RN FOR CONTINUATION OF CARE.
--- NOTE | 2019-08-03 07:30 | NUR ---
RN NOTES RECEIVED PATIENT SEDATED WITH DIPRIVAN AT 10MCG/KG/MIN. ORALLY INTUBATED WITH ETT SIZE 7.5 22CM ON THE LIP. ON OXYGEN SUPPORT VIA MECH VENT WITH THE FOLLOWING SETTINGS AC14, TV 500, FIO2 40% AND PEEP 5. PATIENT TOLERATING CURRENT VENT SETTINGS WITH BREATHING UNLABORED. SATING 100% AT THIS TIME. WITH ONGOING GT FEEDING OF GLUCERNA AT 25CC/HR, PATIENT ABLE TO TOLERATE WITHOUT GASTRIC RESIDUAL TAKEN UPON CHECKING. BILATERAL SOFT RESTRAINTS IN PLACE, REMOVE AND REPLACED. NO SKIN BREAKDOOWN NOTED ON THE SITE. DIEHL CATHETER IN PLAICE- DRAINING VIA GRAVITY TO TEA COLOR URINE. SAFETY MEASURES IN PLACE. HOB ELEVATED. SRX2. BED IN LOW AND LOCKED POSITIONED. CALL LIGHT WITHIN REACH. LWILL CONTINUE TO MONITOR PATIENT ACCORDINGLY
[2019-08-03 08:21] LABS: ABG BASE EXCESS -1.1 mmol/L; ABG OXYGEN SATURATION 97.2 % (92.0-98.5); ABG PCO2 34.1 mmHg (35.0-45.0); ABG PH 7.441 (7.350-7.450); ABG PO2 96.3 mmHg (75.0-100.0); AaDO2 149.7 mmHg; COHb 0.7 % (0.5-1.5); O2Hb 96.5 % (94.0-97.0); SITE, ABG Right Radial; VENT MODE, BG AC 14 500 40% +5
[2019-08-03] MEDS: HYDROCORTISONE SOD SUCCINATE 100 MG/2 ML VIAL IV SCH ×2 (08:56→20:27)
[2019-08-03] MEDS: VANCOMYCIN 1 GM in IV NS 0.9% 250 ML IV SCH ×2 (08:56→20:26)
[2019-08-03] MEDS: PANTOPRAZOLE 40 MG VIAL IV SCH ×2 (08:56→20:27)
[2019-08-03] MEDS: DAKINS HALF STRENGTH (0.25%) 480 ML BOTTLE TOP SCH (08:57)
[2019-08-03] MEDS ORDERED: POTASSIUM CHLORIDE 20 MEQ POWDER PACKET GT SCH (09:30)
[2019-08-03] MEDS: SOD FERRIC GLUC 125 MG in IV NS 0.9% 100 ML IV SCH (14:11)
--- NOTE | 2019-08-03 15:04 | NUR ---
CARPET MEASURER consulted with ICU BENTLEY Roy. Per BENTLEY Roy, pt had no belongings/ identification with him upon arrival to [facility]. Pt is currently intubated and unable to provide any information at this time. CARPET MEASURER [facility] but was unable to speak to anyone or leave a message. There was a continuous recording. Warm handoff provided for tomorrow's SW to f/u.
[2019-08-03 15:06] LABS: *SPE A/G RATIO 0.4 (0.7-1.7); *SPE ALBUMIN 1.6 g/dL (2.9-4.4); *SPE ALPHA-1-GLOBULIN 0.4 g/dL (0.0-0.4); *SPE BETA GLOBULIN 0.7 g/dL (0.7-1.3); *SPE GLOBULIN, TOTAL 3.6 g/dL (2.2-3.9); *SPE M-SPIKE Not Observed g/dL (Not Observed); *SPEGAMMA GLOBULIN 1.6 g/dL (0.4-1.8)
[2019-08-03] MEDS: HYDROGEN PEROXIDE 480 ML BOTTLE TP SCH ×2 (16:42→20:27)
--- NOTE | 2019-08-03 19:15 | NUR ---
N NOTES ENDORSED FOR CONTINUITY OF CARE. NOT ON ANY FORM OF DISTRESS. NO INDICATION OF BLEEDING NOTED. ALL NURSING NEEDS ATTENDED AND MET. ALL SAFETY MEASURES IN PLACE. CALL LIGHT WITHIN REACH. ISOLATION PRECAUTION INITIATE AT ALL TIMES
[2019-08-04] VITALS (50 sets, daily range): BP systolic 91–154; BP diastolic 41–128
[2019-08-04] MEDS: PIPERACILLIN /TAZOBACTAM 3.375 G in IV D5W 100 ML IV SCH ×3 (02:07→17:33)
[2019-08-04 04:09] LABS: BASOPHILS # (AUTO) 0.2 /CMM (0.0-0.2); BASOPHILS % (AUTO) 1.1 % (0.0-2.0); EOSINOPHILS % (AUTO) 0.1 % (0.0-6.0); HEMATOCRIT 27 % (39-51); HEMOGLOBIN 8.3 g/dL (13.5-17.5); LYMPHOCYTES # (AUTO) 0.7 /CMM (0.8-4.8); LYMPHOCYTES % (AUTO) 2.8 % (20.0-44.0); MEAN CORPUSCULAR HGB CONC 31 g/dl (31.0-36.0); MEAN CORPUSCULAR VOLUME 76 fL (80-96); MONOCYTES # (AUTO) 0.8 /CMM (0.1-1.30); MONOCYTES % (AUTO) 3.3 % (2.0-12.0); NEUTROPHILS # (AUTO) 21.5 /CMM (1.8-8.9); NEUTROPHILS % (AUTO) 92.7 % (43.0-81.0); PLATELET COUNT (AUTO) 117 /CMM (150-450); RED BLOOD CELL COUNT(AUTO) 3.52 MIL/uL (4.5-6.0); WHITE BLOOD COUNT (AUTO) 23.2 K/uL (4.3-11.0)
[2019-08-04] MEDS: PROPOFOL 100 ML IV PRN (04:11)
[2019-08-04 04:27] LABS: CALCIUM, SERUM 7.5 mg/dL (8.5-10.1); CREATININE 0.7 mg/dL (0.6-1.3); MAGNESIUM 2.1 mg/dL (1.8-2.4); PHOSPHORUS 2.9 mg/dL (2.5-4.9); POTASSIUM 3.7 mmol/L (3.5-5.1)
[2019-08-04] MEDS: VANCOMYCIN 1 GM in IV NS 0.9% 250 ML IV SCH ×2 (08:12→20:08)
[2019-08-04] MEDS ORDERED: DC PROPOFOL WHEN EXTUBATED XX PRN (09:00)
[2019-08-04] MEDS: HYDROCORTISONE SOD SUCCINATE 100 MG/2 ML VIAL IV SCH ×2 (09:16→20:08)
[2019-08-04] MEDS: PANTOPRAZOLE 40 MG VIAL IV SCH ×2 (09:16→20:08)
[2019-08-04] MEDS: DAKINS HALF STRENGTH (0.25%) 480 ML BOTTLE TOP SCH (09:17)
[2019-08-04] MEDS: HYDROGEN PEROXIDE 480 ML BOTTLE TP SCH ×2 (09:17→20:08)
--- NOTE | 2019-08-04 09:27 | NUR ---
rn notes received patient back from previous shift for continuity of care. sedated with dipriva at 10mcg/kg/min. patient not on any form of distress. breathing unlabored. sating fine at 100%. no indication of pain noted. bilateral soft restraints in place. remove and replaced, no skin breakdown noted on the site. gtf in place, feeding running at desired rate. palacio catheter in place and draining well via gravity to tea color urinne. hob elevated. safety measures measures in place. call light within reach. will continue to monitor patient accordingly
[2019-08-04 09:49] LABS: ABG BASE EXCESS 1.7 mmol/L; ABG OXYGEN SATURATION 98.6 % (92.0-98.5); ABG PCO2 39.3 mmHg (35.0-45.0); ABG PH 7.437 (7.350-7.450); ABG PO2 133.5 mmHg (75.0-100.0); AaDO2 106.5 mmHg; COHb 0.7 % (0.5-1.5); MetHb 0.3 % (0.0-1.5); O2Hb 97.6 % (94.0-97.0); SITE, ABG Right Radial; VENT MODE, BG SIMV 4 500 40% +5
--- NOTE | 2019-08-04 10:00 | NUR ---
RN NOTES PATIENT EXTUBATED BY JUAN,CLOTHING ROOM SUPERVISOR PATIENT ABLE TO TOLERATE THE PROCEDURE WELL. WAS PLACED ON SUPPLEMENTAL OXYGEN VIA NASAL CANNULA AT 3LPM AND IS NOTED SATING 92 AT THIS TIME. WILL CONTINUE TO MONITOR PATIENT ACCORDINGLY
--- NOTE | 2019-08-04 13:17 | NUR ---
SW NOTE: SW received handoff from [facility]. Per case management staff pt has been identified as Yan Rose. Per RN, pt was extubated on this present day at 10:00am. RN states that pt is responsive however, states that pt is resting and recommends SW assess pt tomorrow Saturday08/05/19 when he is more responsive.
--- NOTE | 2019-08-04 19:06 | NUR ---
RN NOTES NO AUTE CHANGES WITHIN THE SHIFT. ALL NURSING NEEDS ATTENDED AND MET. NOT ON ANY FORM OF DISTRESS. BREATHING UNLABORED. SAFETY MEASURES IN PLACE AT ALL TIME. SRX2 UP. BED IN LOW AND LOCKED POSITIONED. BED ALARM ON. CALL LIGHT WITHIN REACH
--- NOTE | 2019-08-04 21:02 | NUR ---
ICU/OPENING RECEIVED PATIENT FROM MORNING SHIFT NURSE, PATIENT IS ALERT AND ABLE TO STATE FULL NAME. PATIENT CURRENTLY IS IN NO SIGN OF ANY DISTRESS. PATIENT IS ON 4L OF O2 ON NC SATURATING AT 99% WITH NO SIGN OF ANY SOB. PATIENT ON THE MONITOR IS NSR HR AT 74. FC DRAINING VIA GRAVITY WITH TARUN OUTPUT. GRACE PICC LINE INTACT AND PATENT. ALL SAFETY PRECAUTIONS APPLIED. PATIENT DOES HAS LOWER EXTREMITY STRENGTH SO BED ALARM IS ON FOR PRECAUTIONS. WILL CONTINUE TO MONITOR PATIENT THROUGHOUT SHIFT.
[2019-08-05] VITALS (24 sets, daily range): BP systolic 114–150; BP diastolic 53–95
[2019-08-05] MEDS: PIPERACILLIN /TAZOBACTAM 3.375 G in IV D5W 100 ML IV SCH ×3 (02:06→18:42)
[2019-08-05 04:46] LABS: BASOPHILS # (AUTO) 0.2 /CMM (0.0-0.2); BASOPHILS % (AUTO) 0.9 % (0.0-2.0); EOSINOPHILS % (AUTO) 0.2 % (0.0-6.0); HEMATOCRIT 27 % (39-51); LYMPHOCYTES # (AUTO) 0.8 /CMM (0.8-4.8); LYMPHOCYTES % (AUTO) 4.7 % (20.0-44.0); MEAN CORPUSCULAR HGB CONC 30 g/dl (31.0-36.0); MEAN CORPUSCULAR VOLUME 77 fL (80-96); MONOCYTES % (AUTO) 5.6 % (2.0-12.0); NEUTROPHILS # (AUTO) 15.8 /CMM (1.8-8.9); NEUTROPHILS % (AUTO) 88.6 % (43.0-81.0); PLATELET COUNT (AUTO) 266 /CMM (150-450); RED BLOOD CELL COUNT(AUTO) 3.43 MIL/uL (4.5-6.0); WHITE BLOOD COUNT (AUTO) 17.8 K/uL (4.3-11.0)
[2019-08-05 05:05] LABS: CALCIUM, SERUM 7.7 mg/dL (8.5-10.1); CREATININE 0.6 mg/dL (0.6-1.3); POTASSIUM 3.3 mmol/L (3.5-5.1)
--- NOTE | 2019-08-05 07:48 | NUR ---
RN OPENING NOTES RECEIVED PATIENT AWAKE IN BED. A/O X2, S/P EXTUBATION ON 08/03. CURRENTLY ON 4L O2 VIA NC, TOLERATING WELL, NO SIGNS OF RESPIRATORY DISTRESS NOTED, SATURATION AT 98%. ON TELE MONITOR WITH SINUS RHYTHM NOTED. PATIENT IS NPO AT THE MOMENT, PENDING SWALLOW EVALUATION. DIEHL CATHETER IS IN PLACE, INTACT, AND DRAINING URINE. PATIENT IS ON BILATERAL WRIST RESTRAINTS DUE TO BEING NON COMPLIANT WITH TREATMENT, ATTEMPTING TO GET OUT OF BED AND KEEPS REMOVING THE NASAL CANULA. RESTRAINTS CHECKED FREQUENTLY PER PROTOCOL. ALL PATIENT NEEDS ARE BEING MET.GRACE PICC LINEN IS INTACT, PATENT, AND FLUSHED WELL. CVP CATHETER IS IN PLACE, CVP NOTED AT 8 AT THE MOMENT. SAFETY IS BEING MAINTAINED, CALL LIGHT WITHIN REACH, WILL CONTINUE TO MONITOR CLOSELY.
[2019-08-05] MEDS ORDERED: FUROSEMIDE 40 MG/4 ML VIAL IV SCH (08:30)
[2019-08-05] MEDS: VANCOMYCIN 1 GM in IV NS 0.9% 250 ML IV SCH ×2 (08:42→19:35)
[2019-08-05] MEDS: POTASSIUM CL. PREMIX PERIPHER. 50 ML IV SCH ×3 (08:50→14:40)
[2019-08-05] MEDS: PANTOPRAZOLE 40 MG VIAL IV SCH ×2 (08:50→20:25)
[2019-08-05] MEDS: HYDROCORTISONE SOD SUCCINATE 100 MG/2 ML VIAL IV SCH ×2 (08:50→20:25)
[2019-08-05] MEDS: POTASSIUM CHLORIDE 20 MEQ TAB.PRT.SR PO SCH ×4 (08:50→10:38)
[2019-08-05] MEDS: DAKINS HALF STRENGTH (0.25%) 480 ML BOTTLE TOP SCH (09:45)
[2019-08-05] MEDS: HYDROGEN PEROXIDE 480 ML BOTTLE TP SCH ×2 (09:49→20:26)
--- NOTE | 2019-08-05 09:53 | NUR ---
RN NOTE PER TECH, VENOUS DOPPLER SCAN UNABLE TO BE DONE DUE TO PATIENT CONDITION
--- NOTE | 2019-08-05 11:30 | NUR ---
RN CLOSING NOTES TRANSFERRED PATIENT TO [facility] ROOM 315/1. ACLS PROTOCOL WAS FOLLOWED. ALL PATIENT NEEDS MET, SAFETY WAS MAINTAINED, REMAINED STABLE DURING TRANSFER, ENDORSED TO NINAY RN FOR ARIA.
--- NOTE | 2019-08-05 11:35 | NUR ---
M/S RN NOTES PATIENT RECEIVED AWAKE IN BED, ALERT AND ORIENTED X3. NO RESPIRATORY DISTRESS, ON O2 AT 3LPM VIA NASAL CANULA. PATIENT WITH NO C/O PAIN AT THIS TIME. PATIENT'S SKIN WARM TO TOUCH, DRESSINGS INTACT AND DRY. PATIENT'S IV ACCESS SITES ON THE GRACE PICC LINE AND RFA #18G BOTH INTACT AND PATENT. PATIENT ON BILAT SOFT WRIST RESTRAINTS, REMOVED AND CHECKED FOR REDNESS AND CIRCULATION. REPOSITIONED PATIENT Q2HRS. F/C INTACT AND DRAINING YELLOW URINE. PATIENT WITH NO BELONGINGS. PATIENT'S NEEDS ATTENDED, BED ON LOWEST LOCKED POSITION, CALL LIGHT WITHIN REACH. WILL CONTINUE TO MONITOR.
--- NOTE | 2019-08-05 19:30 | NUR ---
RN OPENING NOTES NOTES Received patient awake, with confusion noted on bed on O2 inhalation, saturating well. No complaints of pain at this time. With bilateral soft wrist restraints noted. Kept on bed clean, dry and comfortable. On fall and aspiration precautions. Will continue to monitor accordingly.
--- NOTE | 2019-08-05 19:35 | NUR ---
M/S RN NOTES PATIENT AWAKE IN NO RESPIRATORY DISTRESS, NO C/O PAIN AT THIS TIME. SKIN WARM TO TOUCH, IV ACCESS SITES INTACT AND PATENT. F/C INTACT AND DRAINING WELL. PATIENT ON BILAT SOFT WRIST RESTRAINTS. PATIENT'S NEEDS ATTENDED, BED ON LOWEST LOCKED POSITION, CALL LIGHT WITHIN REACH. WILL ENDORSE TO ONCOMING SHIFT.
[2019-08-06] MEDS: PIPERACILLIN /TAZOBACTAM 3.375 G in IV D5W 100 ML IV SCH ×3 (01:28→17:58)
[2019-08-06 06:27] LABS: BASOPHILS % (AUTO) 0.2 % (0.0-2.0); EOSINOPHILS % (AUTO) 0.3 % (0.0-6.0); HEMATOCRIT 28 % (39-51); HEMOGLOBIN 8.9 g/dL (13.5-17.5); LYMPHOCYTES % (AUTO) 8.5 % (20.0-44.0); MEAN CORPUSCULAR HGB CONC 32 g/dl (31.0-36.0); MEAN CORPUSCULAR VOLUME 75 fL (80-96); MONOCYTES # (AUTO) 0.8 /CMM (0.1-1.30); MONOCYTES % (AUTO) 6.8 % (2.0-12.0); NEUTROPHILS # (AUTO) 10.2 /CMM (1.8-8.9); NEUTROPHILS % (AUTO) 84.2 % (43.0-81.0); PLATELET COUNT (AUTO) 359 /CMM (150-450); RED BLOOD CELL COUNT(AUTO) 3.71 MIL/uL (4.5-6.0); WHITE BLOOD COUNT (AUTO) 12.1 K/uL (4.3-11.0)
--- NOTE | 2019-08-06 06:44 | NUR ---
RN CLOSING NOTES Patient asleep, easily awaken. oN O2 inhalation, no SOB/respiratory distress noted. All nursing needs attended, due meds given as ordered. Turned and reposition per protocol. Kept on bed clean, dry and comfortable. On fall and aspiration precautions. Endorsed.
[2019-08-06 06:47] LABS: ALBUMIN 1.5 g/dL (3.4-5.0); BILIRUBIN,TOTAL 0.4 mg/dL (0.2-1.0); CALCIUM, SERUM 7.7 mg/dL (8.5-10.1); CREATININE 0.8 mg/dL (0.6-1.3); MAGNESIUM 1.8 mg/dL (1.8-2.4); PHOSPHORUS 2.4 mg/dL (2.5-4.9); TOTAL PROTEIN, SERUM 6.1 g/dL (6.4-8.2)
--- NOTE | 2019-08-06 07:34 | NUR ---
MS RN OPENING NOTE PATIENT IN BED RESTING COMFORTABLY. PATIENT IN NO ACUTE DISTRESS. NO SOB NOTED. PATIENT BREATHING IS EVEN AND UNLABORED. PATIENT NOTED WITH BILATERAL SOFT WRIST RESTRAINTS, WITH GOOD CIRCULATION NOTED. PATIENT SAFETY PRECAUTIONS IN PLACE. PATIENT BED ALARM IS ON. PATIENT BED IS LOCKED AND IN LOWEST POSITION. CALL LIGHT WITHIN REACH. WILL CONTINUE TO MONITOR.
[2019-08-06 08:00] VITALS: BP 119/64
[2019-08-06] MEDS ORDERED: POTASSIUM CHLORIDE 20 MEQ TAB.PRT.SR PO ONE ×2 (08:00→09:00)
[2019-08-06] MEDS: VANCOMYCIN 1 GM in IV NS 0.9% 250 ML IV SCH ×2 (08:14→22:08)
[2019-08-06] MEDS: HYDROGEN PEROXIDE 480 ML BOTTLE TP SCH ×2 (08:15→22:02)
[2019-08-06] MEDS: PANTOPRAZOLE 40 MG VIAL IV SCH ×2 (08:15→22:02)
[2019-08-06] MEDS: HYDROCORTISONE SOD SUCCINATE 100 MG/2 ML VIAL IV SCH ×2 (08:15→22:10)
[2019-08-06] MEDS: DAKINS HALF STRENGTH (0.25%) 480 ML BOTTLE TOP SCH (08:16)
[2019-08-06] MEDS ORDERED: NEUTRA PHOS 1 POWD.PACKET NG ONE (14:00)
--- NOTE | 2019-08-06 14:25 | NUR ---
FUR OPERATOR conducted chart review and met with the pt bedside. Pt is alert and oriented x 2. Pt appears disheveled and unkempt. FUR OPERATOR attempted to conduct an assessment, however pt is not cooperative, appears confused at times and is in restraints. FUR OPERATOR consulted with pt's bedside RN Travis, who stated pt has been displaying this behavior on and off today. FUR OPERATOR to attempt at a later time when pt is more alert and cooperative to participate in a meaningful conversation.
[2019-08-06 16:00] VITALS: BP 134/73
--- NOTE | 2019-08-06 18:32 | NUR ---
MS RN CLOSING NOTE PATIENT IN BED RESTING COMFORTABLY. PATIENT IN NO ACUTE DISTRESS. NO SOB NOTED. PATIENT BREATHING IS EVEN AND UNLABORED. PATIENT NOTED WITH BILATERAL SOFT WRIST RESTRAINTS, WITH GOOD CIRCULATION NOTED. PATIENT KEPT CLEAN, DRY AND COMFORTABLE THROUGHOUT SHIFT. WOUND CARE PROVIDED ORDERED. PATIENT SAFETY PRECAUTIONS IN PLACE. PATIENT BED ALARM IS ON. PATIENT BED IS LOCKED AND IN LOWEST POSITION. CALL LIGHT WITHIN REACH. WILL ENDORSE CARE TO PM SHIFT FOR ARIA.
--- NOTE | 2019-08-06 19:30 | NUR ---
RN OPENING NOTES The patient is resting in bed. VS WNL. no S/S of distress. No s/s of fever, O2 sat is 98% 2L of O2, NS. A/Ox3. GRACE picc flushing well, cleaned adn patent. The patient is verbal. FC draining well. There multiple wounds on BLE, R tight, and sacrum redness. Will continue to monitor the patient. All safety mechanism in place.
[2019-08-06 20:00] VITALS: BP 114/64
--- NOTE | 2019-08-07 00:30 | NUR ---
performed wound care and dressing change.
[2019-08-07] MEDS: PIPERACILLIN /TAZOBACTAM 3.375 G in IV D5W 100 ML IV SCH ×3 (02:07→17:56)
--- NOTE | 2019-08-07 06:22 | NUR ---
RN CLOSING NOTES The patient is resting in bed. VS WNL. no S/S of distress. No s/s of fever, O2 sat is 99% 2L of O2, NS. A/Ox3. GRACE picc flushing well, cleaned and patent. The patient is verbal. FC draining well, produced 400ml. There multiple wounds on BLE, R tight, and sacrum redness. Wound care provided as ordered. All safety mechanism in place. Will endorse the next shift.
[2019-08-07 08:00] VITALS: BP 108/56
--- NOTE | 2019-08-07 08:00 | NUR ---
m/s medical records field technician: notes breakfast served by dough sheeter and release one of his restraint. pt remains with confusion and disorientation to place and situation. reality orientation provided prn. will continue to monitor.
[2019-08-07 08:08] LABS: BASOPHILS % (AUTO) 0.2 % (0.0-2.0); EOSINOPHILS % (AUTO) 1.4 % (0.0-6.0); HEMATOCRIT 29 % (39-51); HEMOGLOBIN 8.9 g/dL (13.5-17.5); LYMPHOCYTES # (AUTO) 1.4 /CMM (0.8-4.8); LYMPHOCYTES % (AUTO) 10.8 % (20.0-44.0); MEAN CORPUSCULAR HGB CONC 31 g/dl (31.0-36.0); MEAN CORPUSCULAR VOLUME 75 fL (80-96); MONOCYTES # (AUTO) 0.9 /CMM (0.1-1.30); MONOCYTES % (AUTO) 6.7 % (2.0-12.0); NEUTROPHILS # (AUTO) 10.7 /CMM (1.8-8.9); NEUTROPHILS % (AUTO) 80.9 % (43.0-81.0); PLATELET COUNT (AUTO) 364 /CMM (150-450); WHITE BLOOD COUNT (AUTO) 13.3 K/uL (4.3-11.0)
[2019-08-07] MEDS: VANCOMYCIN 1 GM in IV NS 0.9% 250 ML IV SCH (08:35)
[2019-08-07] MEDS: PANTOPRAZOLE 40 MG VIAL IV SCH ×2 (08:36→21:00)
[2019-08-07] MEDS: HYDROCORTISONE SOD SUCCINATE 100 MG/2 ML VIAL IV SCH ×2 (08:36→20:59)
[2019-08-07 08:39] LABS: CALCIUM, SERUM 7.5 mg/dL (8.5-10.1); CREATININE 0.7 mg/dL (0.6-1.3); PHOSPHORUS 2.5 mg/dL (2.5-4.9); POTASSIUM 3.3 mmol/L (3.5-5.1)
[2019-08-07] MEDS ORDERED: POTASSIUM CHLORIDE 20 MEQ TAB.PRT.SR PO SCH (09:30)
--- NOTE | 2019-08-07 10:30 | NUR ---
m/s third loader: notes pt holding his picc line tubing with tip intact. no bleeding to site. pt manage to take off his other restraint and about to remove his palacio. reality orientation provided prn. am care rendered by staff. applied arleen wrist restraint. cn made aware. picc line nurse to come and insert new one.
[2019-08-07] MEDS: DAKINS HALF STRENGTH (0.25%) 480 ML BOTTLE TOP SCH (12:58)
[2019-08-07] MEDS: HYDROGEN PEROXIDE 480 ML BOTTLE TP SCH ×2 (13:00→20:58)
--- NOTE | 2019-08-07 13:00 | NUR ---
m/s registered nurse surgical services: notes release and reposition arleen soft wrist restraint for circulation. pt remains confused and disoriented. reality orientation provided prn. will continue to monitor.
--- NOTE | 2019-08-07 14:35 | NUR ---
m/s soda worker: notes esperanza (picc line nurse) inserted midline to right upper arm, gauze #[id number], sabrina. well.
[2019-08-07 16:00] VITALS: BP_SYST 108; BP_SYST 128; BP_DIAS 56; BP_DIAS 67
--- NOTE | 2019-08-07 16:00 | NUR ---
m/s boat loader: notes incontinent of bowel rendered. kept clean and dry. good pericare rendered. released and repositioned arleen wrist restraint for adl's. will continue to monitor.
--- NOTE | 2019-08-07 19:00 | NUR ---
m/s channel marketing specialist: notes report given to shawn (rn) for continuity of care.
--- NOTE | 2019-08-07 19:38 | NUR ---
MS RN OPENING NOTES RECEIVED PATIENT RESTING IN BED COMFORTABLY; A/OX2-3, CONFUSED; PATIENT ON 2LPM NC, TOLERATING WELL, BREATHING EVEN AND UNLABORED; NO SOB NOTED; PER AM SHIFT, PATIENT PULLED OUT PICC LINE; NEW MIDLINE GRACE #[address], INTACT AND PATENT; FLUSHING WELL, NO S/S OF REDNESS OR INFILTRATION NOTED; BILATERAL WRIST RESTRAINTS APPLIED; NO EVIDENCE OF SKIN BREAKDOWN; DIEHL CATH IN PLACE WITH YELLOW OUTPUT; BED LOCKED IN LOW POSITION; SIDE RAILS X2; CALL LIGHT WITHIN REACH; WILL CONT TO MONITOR
[2019-08-07 20:00] VITALS: BP 142/70
[2019-08-07] MEDS: LINEZOLID RTU BAG 600 MG in PREMIX 1 EA IV SCH (20:59)
--- NOTE | 2019-08-07 22:00 | NUR ---
MS RN NOTES AWAITING PICC LINE INSERTION 2300, PRIOR TO ADMINISTRATION OF MERREM IV; WILL CONT TO MONITOR; CHARGE NURSE AWARE
--- NOTE | 2019-08-07 22:44 | NUR ---
MS RN NOTES NO MECHANICAL PROPHYLAXIS D/T BLE WOUNDS; F/U WITH [facility]ER NP REGARDING CHEMICAL PROPHYLAXIS; PER , START LOVENOX 40MG SQ DAILY IN AM; WILL CONT TO MONITOR
--- NOTE | 2019-08-08 00:24 | NUR ---
MS PINEDA NOTES REPORT GIVEN TO MIRIAM NOE FOR ARIA Addendum: 08/08/19 at 0101 by HASMUKH SARGENT RN report recieved will assume care. cont to monitor.
[2019-08-08] MEDS: PIPERACILLIN /TAZOBACTAM 3.375 G in IV D5W 100 ML IV SCH ×3 (01:38→17:39)
--- NOTE | 2019-08-08 02:39 | NUR ---
wound care performed as ordered.
[2019-08-08 08:00] VITALS: BP_SYST 120; BP_SYST 122; BP_DIAS 46; BP_DIAS 75
--- NOTE | 2019-08-08 08:20 | NUR ---
Seen by Dr. You. Patient updated on plan of care.
[2019-08-08 08:29] LABS: CALCIUM, SERUM 7.4 mg/dL (8.5-10.1); CREATININE 0.7 mg/dL (0.6-1.3)
[2019-08-08 08:32] LABS: BASOPHILS # (AUTO) 0.1 /CMM (0.0-0.2); BASOPHILS % (AUTO) 0.6 % (0.0-2.0); EOSINOPHILS % (AUTO) 0.5 % (0.0-6.0); HEMATOCRIT 29 % (39-51); HEMOGLOBIN 8.8 g/dL (13.5-17.5); LYMPHOCYTES # (AUTO) 1.7 /CMM (0.8-4.8); LYMPHOCYTES % (AUTO) 14.6 % (20.0-44.0); MEAN CORPUSCULAR HGB CONC 31 g/dl (31.0-36.0); MEAN CORPUSCULAR VOLUME 76 fL (80-96); MONOCYTES # (AUTO) 0.9 /CMM (0.1-1.30); MONOCYTES % (AUTO) 7.5 % (2.0-12.0); NEUTROPHILS # (AUTO) 9.1 /CMM (1.8-8.9); NEUTROPHILS % (AUTO) 76.8 % (43.0-81.0); PLATELET COUNT (AUTO) 358 /CMM (150-450); RED BLOOD CELL COUNT(AUTO) 3.74 MIL/uL (4.5-6.0); WHITE BLOOD COUNT (AUTO) 11.8 K/uL (4.3-11.0)
[2019-08-08] MEDS: HYDROGEN PEROXIDE 480 ML BOTTLE TP SCH ×2 (09:42→21:25)
[2019-08-08] MEDS: PANTOPRAZOLE 40 MG VIAL IV SCH ×2 (09:42→21:25)
[2019-08-08] MEDS: POTASSIUM CHLORIDE 20 MEQ TAB.PRT.SR PO SCH ×3 (09:42→12:15)
[2019-08-08] MEDS: LINEZOLID RTU BAG 600 MG in PREMIX 1 EA IV SCH ×2 (09:42→21:24)
[2019-08-08] MEDS: HYDROCORTISONE SOD SUCCINATE 100 MG/2 ML VIAL IV SCH ×2 (09:50→21:29)
[2019-08-08] MEDS: ENOXAPARIN SODIUM 40 MG/0.4 ML DISP.SYRIN SQ SCH (09:51)
[2019-08-08] MEDS: DAKINS HALF STRENGTH (0.25%) 480 ML BOTTLE TOP SCH (09:53)
[2019-08-08 16:00] VITALS: BP 137/75
--- NOTE | 2019-08-08 18:54 | NUR ---
Patient resting in bed. Breathing unlabored and even on room air tolerating well. Midline intact and patent , flushed well. IV Zosyn running as ordered. All needs attended, safety measures implemented and call light within reach.
--- NOTE | 2019-08-08 19:45 | NUR ---
RN NOTES RECEIVED PATIENT RESTING IN BED COMFORTABLY; A/OX2-3, CONFUSED; PATIENT ON 2LPM NC, TOLERATING WELL, BREATHING EVEN AND UNLABORED; NO SOB NOTED; NO ACUTE CARDIAC OR RESPIRATORY DISTRESS NOTED; MIDLINE GRACE #[address], INTACT AND PATENT; FLUSHING WELL, NO S/S OF REDNESS OR INFILTRATION NOTED; BILATERAL WRIST RESTRAINTS APPLIED; NO EVIDENCE OF SKIN BREAKDOWN; DIEHL CATH IN PLACE WITH YELLOW OUTPUT; BED LOCKED IN LOW POSITION; SIDE RAILS X2; CALL LIGHT WITHIN REACH; ALL NEEDS ANTICIPATED. WILL CONTINUE TO MONITOR ACCORDINGLY.
[2019-08-08 20:00] VITALS: BP 132/73
[2019-08-09] MEDS: PIPERACILLIN /TAZOBACTAM 3.375 G in IV D5W 100 ML IV SCH (02:03)
--- NOTE | 2019-08-09 06:49 | NUR ---
RN NOTES ALL NEEDS ATTENDED AND MET, ABLE TO REST AND SLEPT AT INTERVALS, SAFETY MEASURES IN PLACE. ASPIRATION PRECAUTION EMPHASIZED. CALL LIGHT WITH IN EASY REACH. IV LINE INTACT AND PATENT REPOSITIONED, WILL ENDORSE TO AM NURSE FOR CONTINUITY OF CARE.
[2019-08-09 08:00] VITALS: BP 142/65
[2019-08-09 08:00] LABS: BASOPHILS % (AUTO) 0.3 % (0.0-2.0); EOSINOPHILS % (AUTO) 0.6 % (0.0-6.0); HEMATOCRIT 31 % (39-51); HEMOGLOBIN 9.4 g/dL (13.5-17.5); LYMPHOCYTES # (AUTO) 1.6 /CMM (0.8-4.8); LYMPHOCYTES % (AUTO) 11.7 % (20.0-44.0); MEAN CORPUSCULAR HGB CONC 31 g/dl (31.0-36.0); MEAN CORPUSCULAR VOLUME 77 fL (80-96); MONOCYTES # (AUTO) 0.8 /CMM (0.1-1.30); MONOCYTES % (AUTO) 5.9 % (2.0-12.0); NEUTROPHILS # (AUTO) 11.4 /CMM (1.8-8.9); NEUTROPHILS % (AUTO) 81.5 % (43.0-81.0); PLATELET COUNT (AUTO) 368 /CMM (150-450)
[2019-08-09 08:01] VITALS: BP 142/65
[2019-08-09 08:20] LABS: CALCIUM, SERUM 7.8 mg/dL (8.5-10.1); CREATININE 0.8 mg/dL (0.6-1.3); POTASSIUM 3.6 mmol/L (3.5-5.1)
[2019-08-09] MEDS: HYDROCORTISONE SOD SUCCINATE 100 MG/2 ML VIAL IV SCH ×2 (08:44→20:40)
[2019-08-09] MEDS: PANTOPRAZOLE 40 MG VIAL IV SCH ×2 (08:44→20:40)
[2019-08-09] MEDS: LINEZOLID RTU BAG 600 MG in PREMIX 1 EA IV SCH ×2 (08:45→20:50)
[2019-08-09] MEDS: ENOXAPARIN SODIUM 40 MG/0.4 ML DISP.SYRIN SQ SCH (08:47)
[2019-08-09] MEDS: DAKINS HALF STRENGTH (0.25%) 480 ML BOTTLE TOP SCH (08:56)
[2019-08-09] MEDS: HYDROGEN PEROXIDE 480 ML BOTTLE TP SCH ×2 (08:57→20:56)
--- NOTE | 2019-08-09 15:18 | NUR ---
Patient cooperative and calm, remains confused for time to time. D/C restraince per dr. You
[2019-08-09 16:00] VITALS: BP 127/66
--- NOTE | 2019-08-09 18:35 | NUR ---
Patient resting in bed. Breathing unlabored and even on room air tolerating well. Midline intact and patent , flushing well. F/C intact draining urine yellow with sediment All needs attended, skin care done.Safety measures implemented and call light within reach.Awaiting for placement. Will endorse to next shift for ARIA
--- NOTE | 2019-08-09 19:15 | NUR ---
RN medsurg opening notes Received Pt from morning nurse. Pt is alert and orientedX1-2. Pt is resting in bed comfortably. Respiration is normal. No SOB. No S/S of distress noted. GRACE midline is clean, intact, patent and SL. Villafuerte cath is clean, intact and draining yellow urine with sediment. Safety precautions is maintained. Bed at low position, brakes locked, side rails upX2, bed alarm is on and call light is within reach. Will continue to monitor.
[2019-08-09 20:00] VITALS: BP 117/61
[2019-08-09 20:52] VITALS: BP 117/61
--- NOTE | 2019-08-09 22:00 | NUR ---
RN erlin notes Wound care provided as ordered on BLE, R foot and L foot, R knee. Pictures are taken and placed at Pt's chart. Pt refused assessment and skin pictures on back, sacrum, R hip and groin. Offered multiple times. Made aware risks and benefits. Pt keep refusing. Will continue to monitor.
--- NOTE | 2019-08-10 06:50 | NUR ---
RN medsurg closing notes Pt is alert and orientedX1-2. Pt is resting in bed comfortably. Respiration is normal in 2 L NC. No SOB. No S/S of distress noted. VS is stable. Afebrile. Routine meds were given as ordered. GRACE midline is clean, intact, patent and SL. Villafuerte cath is clean, intact and draining yellow urine with sediment 1100ml. Wound care provided as ordered. Kept Pt clean, dry and comfortable. Safety precautions is maintained. Bed at low position, brakes locked, side rails upX2, bed alarm is on and call light is within reach. Will endorse to morning nurse for ARIA.
[2019-08-10 07:01] LABS: CALCIUM, SERUM 7.5 mg/dL (8.5-10.1); CREATININE 0.8 mg/dL (0.6-1.3); POTASSIUM 3.6 mmol/L (3.5-5.1)
--- NOTE | 2019-08-10 07:50 | NUR ---
MS RN OPENING NOTES RECEIVED PATIENT IN BED, AWAKE, A/O X2. PATIENT ON AND OFF O2; BREATHING IS EVEN AND UNLABORED; NO SOB PRESENT AT THIS TIME. GRACE MIDLINE PRESENT AND INTACT. NO COMPLAINS OF PAIN AT THE MOMENT. SAFETY PRECAUTIONS IN PLACE; BED IN LOW POSITION AND LOCKED; RAILS UP X2, CALL LIGHT WITHIN REACH. WILL CONTINUE TO MONITOR PATIENT.
[2019-08-10 08:00] VITALS: BP 129/75
[2019-08-10] MEDS: PANTOPRAZOLE 40 MG VIAL IV SCH ×2 (08:27→20:32)
[2019-08-10] MEDS: HYDROCORTISONE SOD SUCCINATE 100 MG/2 ML VIAL IV SCH ×2 (08:27→20:32)
[2019-08-10] MEDS: ENOXAPARIN SODIUM 40 MG/0.4 ML DISP.SYRIN SQ SCH (08:29)
[2019-08-10] MEDS: HYDROGEN PEROXIDE 480 ML BOTTLE TP SCH ×2 (08:30→20:32)
[2019-08-10] MEDS: DAKINS HALF STRENGTH (0.25%) 480 ML BOTTLE TOP SCH (08:30)
[2019-08-10] MEDS: LINEZOLID RTU BAG 600 MG in PREMIX 1 EA IV SCH ×2 (08:32→20:43)
[2019-08-10 16:00] VITALS: BP 127/72
--- NOTE | 2019-08-10 18:52 | NUR ---
MS RN CLOSING NOTES PATIENT REMAINS IN BED, AWAKE, A/O X2. PATIENT ON AND OFF O2; BREATHING IS EVEN AND UNLABORED; NO SOB PRESENT AT THIS TIME. GRACE MIDLINE PRESENT AND INTACT. NO COMPLAINS OF PAIN THROUGHOUT THE DAY. ALL NEEDS ATTENDED TO. SAFETY PRECAUTIONS REMAIN IN PLACE; BED IN LOW POSITION AND LOCKED; RAILS UP X2, CALL LIGHT WITHIN REACH. WILL ENDORSE TO POOL MANAGER NURSE.
[2019-08-10 19:30] VITALS: BP 129/63
--- NOTE | 2019-08-10 19:35 | NUR ---
MS RN NOTES PATIENT IN BED, AWAKE, ALERT AND ORIENTED X 2. BREATHING EVEN AND UNLABORED ON ROOM AIR. SHOWS NO SIGNS OF ACUTE RESPIRATORY DISTRESS. NO ACUTE PAIN. FC CLEAN DRY AND INTACT, FLOWING YELLOW URINE. GRACE MIDLINE CLEAN, DRY AND INTACT. SHOWS NO SIGNS OF INFILTRATION, NO REDNESS. SAFETY PRECAUTIONS IN PLACE. BED IN LOWEST POSITION, LOCKED, AND CALL LIGHT KEPT WITHIN REACH. WILL CONTINUE TO MONITOR.
[2019-08-10 20:00] VITALS: BP 129/63
--- NOTE | 2019-08-11 06:19 | NUR ---
MS RN NOTES PATIENT REFUSING WOUND TREATMENT AND BED CHANGE. ALSO REFUSED XR CHEST, ASK TO COME BACK LATER. WILL CONTINUE TO MONITOR.
--- NOTE | 2019-08-11 06:35 | NUR ---
MS RN NOTES PATIENT IN BED, ASLEEP, ALERT AND ORIENTED X 2. BREATHING EVEN AND UNLABORED ON ROOM AIR. SHOWS NO SIGNS OF ACUTE RESPIRATORY DISTRESS. NO ACUTE PAIN. FC CLEAN DRY AND INTACT, FLOWING YELLOW URINE. GRACE MIDLINE CLEAN, DRY AND INTACT. SHOWS NO SIGNS OF INFILTRATION, NO REDNESS. ALL DUE MEDICATIONS GIVEN. SAFETY PRECAUTIONS IN PLACE. BED IN LOWEST POSITION, LOCKED, AND CALL LIGHT KEPT WITHIN REACH. WILL ENDORSE TO ONCOMING NURSE.
--- NOTE | 2019-08-11 06:39 | NUR ---
PT REFUSE XRAY @2801//NURSE NOTIFY YW
--- NOTE | 2019-08-11 07:31 | NUR ---
MS RN OPENING NOTES RECEIVED PATIENT IN BED, ASLEEP. PATIENT ON AND OFF O2; BREATHING IS EVEN AND UNLABORED; NO SOB PRESENT AT THIS TIME. GRACE MIDLINE PRESENT AND INTACT. NO S/S OF PAIN AT THE MOMENT SUCH FACIAL GRIMACING, MOANING OR GUARDING. SAFETY PRECAUTIONS IN PLACE; BED IN LOW POSITION AND LOCKED; RAILS UP X2, CALL LIGHT WITHIN REACH. WILL CONTINUE TO MONITOR PATIENT.
[2019-08-11 08:00] VITALS: BP 128/68
[2019-08-11 08:26] LABS: BASOPHILS % (AUTO) 0.1 % (0.0-2.0); EOSINOPHILS % (AUTO) 0.1 % (0.0-6.0); HEMATOCRIT 30 % (39-51); HEMOGLOBIN 9.4 g/dL (13.5-17.5); LYMPHOCYTES # (AUTO) 1.3 /CMM (0.8-4.8); LYMPHOCYTES % (AUTO) 12.8 % (20.0-44.0); MEAN CORPUSCULAR HGB CONC 31 g/dl (31.0-36.0); MEAN CORPUSCULAR VOLUME 78 fL (80-96); MONOCYTES # (AUTO) 0.6 /CMM (0.1-1.30); MONOCYTES % (AUTO) 6.1 % (2.0-12.0); NEUTROPHILS # (AUTO) 8.4 /CMM (1.8-8.9); NEUTROPHILS % (AUTO) 80.9 % (43.0-81.0); PLATELET COUNT (AUTO) 350 /CMM (150-450); RED BLOOD CELL COUNT(AUTO) 3.88 MIL/uL (4.5-6.0); WHITE BLOOD COUNT (AUTO) 10.4 K/uL (4.3-11.0)
[2019-08-11] MEDS: PANTOPRAZOLE 40 MG VIAL IV SCH ×2 (08:36→21:55)
[2019-08-11] MEDS: HYDROCORTISONE SOD SUCCINATE 100 MG/2 ML VIAL IV SCH (08:36)
[2019-08-11] MEDS: DAKINS HALF STRENGTH (0.25%) 480 ML BOTTLE TOP SCH (08:37)
[2019-08-11] MEDS: ENOXAPARIN SODIUM 40 MG/0.4 ML DISP.SYRIN SQ SCH (08:37)
[2019-08-11] MEDS: LINEZOLID RTU BAG 600 MG in PREMIX 1 EA IV SCH ×2 (08:37→21:55)
[2019-08-11] MEDS: HYDROGEN PEROXIDE 480 ML BOTTLE TP SCH ×2 (08:38→21:56)
[2019-08-11 08:59] LABS: CALCIUM, SERUM 7.4 mg/dL (8.5-10.1); CREATININE 0.7 mg/dL (0.6-1.3); POTASSIUM 3.6 mmol/L (3.5-5.1)
--- NOTE | 2019-08-11 09:03 | NUR ---
MS RN NOTES PATIENT REFUSES CHEST X-RAY STATING HE DOES NOT NEED ONE. ATTENDING PHYSICIAN AWARE.
[2019-08-11 16:00] VITALS: BP 139/83
--- NOTE | 2019-08-11 18:40 | NUR ---
MS RN CLOSING NOTES PATIENT REMAINS IN BED, AWAKE, A/O X3. PATIENT ON ROOM AIR; BREATHING IS EVEN AND UNLABORED; NO SOB PRESENT AT THIS TIME. GRACE MIDLINE PRESENT AND INTACT. NO COMPLAINS OF PAIN THROUGHOUT THE DAY. ALL NEEDS ATTENDED TO. WOUND CARE PROVIDED. SAFETY PRECAUTIONS REMAIN IN PLACE; BED IN LOW POSITION AND LOCKED; RAILS UP X2, CALL LIGHT WITHIN REACH. WILL ENDORSE TO GEOINT ANALYST NURSE.
--- NOTE | 2019-08-11 19:10 | NUR ---
MS RN PM OPENING NOTE BEDSIDE REPORT RECIEVED FORM HARSH Sun RN. PATIENT IN BED, AWAKE, A/O X3. PATIENT ON ROOM AIR; BREATHING EVEN AND UNLABORED; DENIES SOB. GRACE MIDLINE PRESENT AND INTACT, FLUSHED PATENT. DENIES PAIN. SAFETY PRECAUTIONS REMAIN IN PLACE; BED IN LOW POSITION AND LOCKED; RAILS UP X2, CALL LIGHT WITHIN REACH. CALL LIGHT WITHIN REACH VERBALIZED UNDERSTANDING TO CALL FOR ASSISTANCE NEEDED.
[2019-08-11 20:00] VITALS: BP 123/67
--- NOTE | 2019-08-12 02:00 | NUR ---
PT REFUSED WOUND CARE. STATES, "SHE DID IT UP ALL GOOD EARLIER TODAY I DON'T FEEL LIKE HAVING IT CHANGED RIGHT NOW. ID RATHER NOT BE BOTHERED."
[2019-08-12 06:53] LABS: CALCIUM, SERUM 7.8 mg/dL (8.5-10.1); CREATININE 0.8 mg/dL (0.6-1.3); POTASSIUM 3.8 mmol/L (3.5-5.1)
--- NOTE | 2019-08-12 07:47 | NUR ---
rn notes patient received on room air, no sob noted, somewhat confused. palacio catheter present and is draining. Plan is to DC and is currently awaiting for placement. bed at the lowest setting, call light within reach, side rails up x2.
[2019-08-12 08:00] VITALS: BP 125/84
[2019-08-12] MEDS: HYDROGEN PEROXIDE 480 ML BOTTLE TP SCH (08:33)
[2019-08-12] MEDS: ENOXAPARIN SODIUM 40 MG/0.4 ML DISP.SYRIN SQ SCH (08:35)
[2019-08-12] MEDS: DAKINS HALF STRENGTH (0.25%) 480 ML BOTTLE TOP SCH (08:38)
[2019-08-12] MEDS: PANTOPRAZOLE 40 MG VIAL IV SCH (08:38)
[2019-08-12] MEDS ORDERED: HYDROCORTISONE SOD SUCCINATE 100 MG/2 ML VIAL IV SCH (09:00)
[2019-08-12] MEDS: LINEZOLID RTU BAG 600 MG in PREMIX 1 EA IV SCH (09:12)
[2019-08-12] MEDS ORDERED: LINE600I2 IV (10:55)
--- NOTE | 2019-08-12 14:37 | NUR ---
rn notes patient getting transferred at this time, no sob noted, vital signs stable. palacio cath removed, photos taken of wound and is placed in the chart, BLE, right hip and both feet have wounds. GRACE midline to stay with the patient. Patient has no belongings per patient and his belongings list.
[2019-08-12] MEDS ORDERED: LINEZOLID 600 MG TABLET PO SCH (21:00)
== END 2019-08-12 14:49 | DRG 870 ==
LOC: ER 18:22 → ICU 21:25 → EDBD 21:25 → MED 08-05 11:39 → TELE 08-05 12:33 → MED 08-05 12:42
PROVIDERS: ADMIT Internal Medicine; ATTEND Internal Medicine
PROC: 0BH17EZ Insertion of Endotracheal Airway into Trachea, Via Natural or Artificial Opening (ICD-10-PCS; principal; 2019-07-29)
PROC: 5A1955Z Respiratory Ventilation, Greater than 96 Consecutive Hours (ICD-10-PCS; principal; 2019-07-29)
PROC: 30233N1 Transfusion of Nonautologous Red Blood Cells into Peripheral Vein, Percutaneous Approach (ICD-10-PCS; 2019-07-30)
PROC: 02HV33Z Insertion of Infusion Device into Superior Vena Cava, Percutaneous Approach (ICD-10-PCS; 2019-07-31)
PROC: B548ZZA Ultrasonography of Superior Vena Cava, Guidance (ICD-10-PCS; 2019-07-31)
PROC: 05H933Z Insertion of Infusion Device into Right Brachial Vein, Percutaneous Approach (ICD-10-PCS; 2019-08-07)
DX: A41.9 Sepsis, unspecified organism (principal); E43 Unspecified severe protein-calorie malnutrition; N17.0 Acute kidney failure with tubular necrosis; G92 Toxic encephalopathy; J96.02 Acute respiratory failure with hypercapnia; J96.01 Acute respiratory failure with hypoxia; J18.9 Pneumonia, unspecified organism; R65.21 Severe sepsis with septic shock; E87.2 Acidosis; J98.11 Atelectasis; E87.0 Hyperosmolality and hypernatremia; D50.9 Iron deficiency anemia, unspecified; I87.8 Other specified disorders of veins; N18.9 Chronic kidney disease, unspecified; D63.8 Anemia in other chronic diseases classified elsewhere; Z59.0 Homelessness; I87.2 Venous insufficiency (chronic) (peripheral); I89.0 Lymphedema, not elsewhere classified; L89.156 Pressure-induced deep tissue damage of sacral region; L89.326 Pressure-induced deep tissue damage of left buttock; L89.316 Pressure-induced deep tissue damage of right buttock; L89.106 Pressure-induced deep tissue damage of unspecified part of back; L89.216 Pressure-induced deep tissue damage of right hip; S70.221A Blister (nonthermal), right hip, initial encounter; X58.XXXA Exposure to other specified factors, initial encounter; Y92.9 Unspecified place or not applicable; R23.8 Other skin changes; T38.0X5A Adverse effect of glucocorticoids and synthetic analogues, initial encounter; Y92.129 Unspecified place in nursing home as the place of occurrence of the external cause; L89.896 Pressure-induced deep tissue damage of other site; L89.626 Pressure-induced deep tissue damage of left heel; L89.616 Pressure-induced deep tissue damage of right heel; D63.1 Anemia in chronic kidney disease; E87.6 Hypokalemia; B95.2 Enterococcus as the cause of diseases classified elsewhere; B96.89 Other specified bacterial agents as the cause of diseases classified elsewhere
CPT/HCPCS: 31720; 36415; 36600; 70450-TC; 71045-TC; 76770-TC; 80048-TC; 80053-TC; 80202-TC; 80305; 81000-TC; 82248-TC; 82533; 82550-TC; 82553; 82570-TC; 82728-TC; 82803-TC; 83540-TC; 83605-TC; 83615-TC; 83735-TC; 83880; 83970; 84100-TC; 84155; 84155-TC; 84165; 84300-TC; 84484-TC; 85025-TC; 85378-TC; 85385-TC; 85730-TC; 86140-TC; 86850-TC; 86921-TC; 87040-TC; 87070-TC; 87081-TC; 87086-TC; 87186-TC; 87806; 92526; 92611-TC; 93307-TC; 94002-TC; 94003-TC; 94640-TC; 94799-TC; 99082-TC; A4216; A6253; A6403; C1750; C9113; G0378; J0692; J1650; J1720; J1885; J1940; J2020; J2405; J2543; J2916; J3370; J3480; J3490; J7030; J7040; J7042; J7050; J7060; P9016-BL; U0003-CS